=== PATIENT | female | born 1975 | race Caucasian/White ===

== ENCOUNTER 2017-03-20 14:46 | Emergency (ER) | payer SELFPAY ==
[2017-03-20] MEDS ORDERED: Metoclopramide HCl 10 MG/2 ML VIAL ONE (15:41)
== END 2017-03-20 16:55 | disposition home or self-care (01) ==
LOC: ERS 14:46
DX: R11.2 Nausea with vomiting, unspecified (principal); F17.210 Nicotine dependence, cigarettes, uncomplicated
CPT/HCPCS: 96365; 99406; J2765

== ENCOUNTER 2017-09-10 18:59 | Emergency (ER) | payer SELFPAY ==
[~2017-09-10 18:59] MED LIST: ISOVUE-370 76%-LOCM 1 ML ONE
[2017-09-10 19:24] LABS: Bilirubin Negative (Negative); Blood, Urine Large (Negative); Clarity CLEAR (Clear); Glucose, Urine (Dipstick) Negative (Negative); Leukocyte Negative (Negative); Nitrite Negative (Negative); Protein, Urine (Dipstick) Negative (Neg-Trace); Specific Gravity, Urine 1.024 (1.002-1.036); Urobilinogen 0.2 mg/dL (0.2-1.0)
[2017-09-10 19:25] LABS: #Basophils 0.1 thou/uL (0.0-0.2); #Eosinphils 0.2 thou/uL (0.0-0.7); #Lymphocytes 3.7 thou/uL (1.20-3.40); #Monocytes 0.6 thou/uL (0.11-0.59); #Neutrophils 7.5 thou/uL (1.40-6.50); %Basophils 0.5 % (0.0-1.0); %Eosinophils 1.7 % (0.0-10.0); %Lymphocytes 30.4 % (21.0-51.0); %Neutrophils 62.4 % (42.0-75.0); Hemoglobin 12.4 g/dL (12.0-16.0); Mean Corpuscular HGB CONC 34.5 g/dL (32.0-36.0); Mean Corpuscular Hemoglobin 32.3 pg (27.0-31.0); Mean Corpuscular Volume 93.7 fl (81.0-99.0); Mean Platelet Volume 6.9 fL (7.4-10.4); Platelet Count 282 thou/uL (130-400); RBC Distribution Width 12.7 % (11.5-14.5); Red Blood Cell (RBC) Count 3.85 mill/uL (4.20-5.40)
[2017-09-10 19:28] LABS: Bacteria/HPF None Seen HPF (None Seen); Hyaline Casts/LPF 0-3 HYALINE CAST LPF (0-3 Hyaline); Pathc Cast-AUWi Flag 0.14 (0-2.49); RBC/HPF GREATER THAN 50-TNTC HPF (0-3); Squamous Epithelial 0-3 HPF (0-3); WBC/HPF 0-3 HPF (0-3)
[2017-09-10] MEDS ORDERED: Prochlorperazine Maleate 5 MG TAB ONE (19:34)
[2017-09-10 19:45] LABS: ALT (SGPT) 10 U/L (8-55); AST (SGOT) 15 U/L (5-34); Albumin 4.1 g/dL (3.5-5.0); Alkaline Phosphatase 86 U/L (40-150); Anion Gap 13 mmol/L (10-20); BUN (Urea Nitrogen) 19 mg/dL (7.0-18.7); Bilirubin, Total 0.2 mg/dL (0.2-1.2); CK (CPK) 119 U/L (29-168); Calc. Creatinine Clearance 0 mL/min (70-130); Calcium 9.3 mg/dL (7.8-10.44); Carbon Dioxide 25 mmol/L (22-29); Chloride 107 mmol/L (98-107); Estimated GFR-MDRD Greater than 90; Globulin 2.7 g/dL (2.4-3.5); Glucose 95 mg/dL (70-105); Potassium 3.8 mmol/L (3.5-5.1); Protein, Total 6.8 g/dL (6.0-8.3); Sodium 141 mmol/L (136-145)
[2017-09-10 19:48] LABS: Troponin I Less than 0.010 ng/mL (< 0.028)
[2017-09-10] MEDS ORDERED: Lorazepam 2 MG/ML VIAL ONE (20:18)
[2017-09-10] MEDS ORDERED: Acetaminophen 500 MG TAB ONE (20:19)
--- NOTE | 2017-09-10 20:39 | RAD ---
PORTABLE CHEST: 09/10/17 HISTORY: Chest pain radiating to jaw and left arm. Heart size and mediastinum are within normal limits. The lungs are clear of infiltrates. No signs of failure. IMPRESSION: No active intrathoracic disease. POS: [facility]
[2017-09-10] MEDS ORDERED: diphenhydrAMINE 12.5 MG/5 ML UDCUP ONE (21:18)
[2017-09-10] MEDS ORDERED: Haloperidol Lactate 5 MG/ML VIAL ONE (21:18)
[2017-09-10] MEDS ORDERED: diphenhydrAMINE 50 MG/ML VIAL ONE (21:20)
--- NOTE | 2017-09-10 22:55 | CT ---
CT OF HEAD PERFORMED WITHOUT CONTRAST ENHANCEMENT AND CT ANGIO OF HEAD AND NECK PERFORMED WITH INTRAV ENOUS CONTRAST ENHANCEMENT WITH 3D RECONSTRUCTIONS: 09/10/17 HISTORY: Chest pain, pain radiating into the left arm and jaw region. Difficulty breathing. The ventricular and cisternal system is within normal limits. There is no signs of intracerebral hemo rrhage or extra-axial fluid collections. Mastoid air cells and visualized sinuses are clear. The lung apices are clear of any infiltrative process. There is a slightly prominent node in the tre on of the left aorticopulmonary window region. It measures 1.4 cm. I do not see any other abnormal no aaron in the visualized portion of the mediastinum. No signs for pulmonary embolus in the upper lobe pu lmonary vessels. Thyroid gland is unremarkable. Vocal cord regions normal. Some mildly prominent jugular chain nodes a re present, slightly more prominent on the left side but these are felt to just be reactive. The paro tid and submandibular gland regions are unremarkable. Parapharyngeal spaces are clear and tonsillar r egions appear unremarkable. Angiographic portion of this study shows separate origin of the left common carotid artery from the a ortic arch. The vertebral arteries show a more dominant right vertebral, slightly smaller left verteb ral with the main contribution of the basilar artery coming from the right vertebral. On the right side, the right common carotid as well as internal and external carotid arteries are nor mal in appearance. No evidence of any significant stenosis by NASCET criteria. The left side shows similar changes. No significant stenosis of the internal, external or common gallagher tid arteries. Intracranially, the anterior and middle cerebral arteries and their branches appear unremarkable. No signs of thrombus. Peripheral middle cerebral artery vessels are symmetric in appearance. IMPRESSION: Essentially unremarkable CT angio of head and neck with incidental findings as discussed above. POS: [facility]
== END 2017-09-10 23:02 | disposition home or self-care (01) ==
LOC: ERS 18:59
DX: R07.89 Other chest pain (principal); R51 Headache; F32.9 Major depressive disorder, single episode, unspecified; F17.210 Nicotine dependence, cigarettes, uncomplicated; Z79.899 Other long term (current) drug therapy
CPT/HCPCS: 70496; 70498; 71045; 80053; 81003; 81015; 82553; 84484; 85025; 85379; 93005; 96361; 96374; 96375; J1200; J1630; J2060; Q0164

== ENCOUNTER 2018-06-04 15:48 | Emergency (ER) | payer SELFPAY ==
[2018-06-04] MEDS ORDERED: Promethazine HCl 25 MG/ML VIAL ONE (16:56)
== END 2018-06-04 17:10 | disposition home or self-care (01) ==
LOC: ERS 15:48
DX: R11.2 Nausea with vomiting, unspecified (principal); F17.210 Nicotine dependence, cigarettes, uncomplicated
CPT/HCPCS: 96372; 99406; J2550

== ENCOUNTER 2019-01-31 16:06 | Emergency (ER) | payer SELFPAY ==
[2019-01-31 17:25] LABS: #Basophils 0.1 thou/uL (0.0-0.2); #Eosinphils 0.2 thou/uL (0.0-0.7); #Lymphocytes 3.1 thou/uL (1.20-3.40); #Monocytes 0.7 thou/uL (0.11-0.59); #Neutrophils 7.9 thou/uL (1.40-6.50); %Basophils 0.8 % (0.0-1.0); %Eosinophils 1.3 % (0.0-10.0); %Monocytes 5.7 % (0.0-10.0); %Neutrophils 66.2 % (42.0-75.0); Hemoglobin 12.6 g/dL (12.0-16.0); Mean Corpuscular HGB CONC 33.7 g/dL (32.0-36.0); Mean Corpuscular Hemoglobin 31.3 pg (27.0-31.0); Mean Corpuscular Volume 92.8 fL (78.0-98.0); Mean Platelet Volume 7.1 fL (7.4-10.4); Platelet Count 253 thou/uL (130-400); Red Blood Cell (RBC) Count 4.02 mill/uL (4.20-5.40); White Blood Cell (WBC) Count 11.9 thou/uL (4.8-10.8)
[2019-01-31 17:44] LABS: ALT (SGPT) 17 U/L (8-55); AST (SGOT) 12 U/L (5-34); Albumin 4.2 g/dL (3.5-5.0); Alkaline Phosphatase 83 U/L (40-110); Anion Gap 13 mmol/L (10-20); BUN (Urea Nitrogen) 14 mg/dL (7.0-18.7); Bilirubin, Total 0.2 mg/dL (0.2-1.2); Calc. Creatinine Clearance 0 mL/min (70-130); Calcium 9.3 mg/dL (7.8-10.44); Carbon Dioxide 21 mmol/L (22-29); Chloride 109 mmol/L (98-107); Estimated GFR-MDRD Greater than 90; Globulin 2.8 g/dL (2.4-3.5); Glucose 105 mg/dL (70-105); Potassium 3.7 mmol/L (3.5-5.1); Sodium 139 mmol/L (136-145)
[2019-01-31 17:46] LABS: Bilirubin Negative (Negative); Blood, Urine Trace (Negative); Clarity Turbid (Clear); Glucose, Urine (Dipstick) Normal (Negative); Leukocyte 25 Leu/uL (Negative); Nitrite Negative (Negative); Protein, Urine (Dipstick) Negative (Neg-Trace); Urobilinogen Normal mg/dL (Less than 2)
[2019-01-31 17:55] LABS: Bacteria/HPF Rare-Few HPF (None Seen); RBC/HPF 0-3 HPF (0-3); Squamous Epithelial 0-3 HPF (0-3); WBC/HPF 0-3 HPF (0-3)
--- NOTE | 2019-01-31 18:27 | RAD ---
PORTABLE CHEST: History: Syncope, chest pressure, jaw pain. Comparison: 09-10-17 FINDINGS: Heart size and mediastinum are within normal limits. The lungs are clear of infiltrates. No significa nt bony findings. IMPRESSION: No active intrathoracic disease. POS: [facility]
[2019-01-31] MEDS ORDERED: Lorazepam 1 MG TAB ONE (18:38)
--- NOTE | 2019-01-31 18:58 | CT ---
CT BRAIN PERFORMED WITHOUT CONTRAST ENHANCEMENT: History: Dizziness, syncope. FINDINGS: The ventricular and cisternal system is within normal limits. There are no signs of intracerebral hem orrhage or extraaxial fluid collections. The mastoid air cells and visualized sinuses appear clear. IMPRESSION: No acute intracranial abnormalities. POS: [facility]
== END 2019-01-31 19:24 | disposition home or self-care (01) ==
LOC: ERS 16:06
DX: R55 Syncope and collapse (principal); F41.9 Anxiety disorder, unspecified; D50.9 Iron deficiency anemia, unspecified; F32.9 Major depressive disorder, single episode, unspecified; F17.210 Nicotine dependence, cigarettes, uncomplicated; Z79.899 Other long term (current) drug therapy
CPT/HCPCS: 36415; 70450; 71045; 80053; 81003; 81015; 84443; 84484; 85025; 93005

== ENCOUNTER 2020-10-23 08:24 | Outpatient (CLI) | payer BC ==
[2020-10-23 09:40] LABS: #Basophils 0.1 10x3/uL (0.0-0.2); #Eosinphils 0.2 10x3/uL (0.0-0.5); #Monocytes 0.7 10x3/uL (0.0-1.1); #Neutrophils 5.5 10x3/uL (1.5-8.4); %Basophils 0.6 % (0.0-2.0); %Eosinophils 2.1 % (0.0-6.0); %Monocytes 7.8 % (0.0-10.0); Hemoglobin 12.6 g/dL (12.0-15.5); Mean Corpuscular HGB CONC 31.9 g/dL (32.0-36.0); Mean Corpuscular Hemoglobin 28.6 pg (27.0-33.0); Mean Corpuscular Volume 89.8 fl (81.6-98.3); Mean Platelet Volume 10.2 fl (7.4-10.4); Platelet Count 289 10x3/uL (150-450); RBC Distribution Width 15.4 % (11.5-14.5); White Blood Cell (WBC) Count 8.5 10x3/uL (3.5-10.5)
[2020-10-23 09:51] LABS: BHCG - Serum Negative (NEGATIVE); Pregs Control Background? CLEAR/WHITE (CLR/WHITE); Pregs Control Bar Appear? YES (CONTROL BAR)
== END 2020-10-23 08:25 | disposition home or self-care (01) ==
LOC: LABBT 08:24
PROVIDERS: ATTEND Orthopaedic Surgery
DX: Z01.812 Encounter for preprocedural laboratory examination (principal); G56.21 Lesion of ulnar nerve, right upper limb; G56.01 Carpal tunnel syndrome, right upper limb
CPT/HCPCS: 84703; 85025

== ENCOUNTER 2020-10-26 06:23 | Day surgery (SDC) | payer BC ==
[2020-10-25 09:33] VITALS: BMI 36.0
[2020-10-26] MEDS ORDERED: Midazolam HCl 2 mg/2 ml Vial ONE (08:22)
[2020-10-26] MEDS ORDERED: Fentanyl 100 MCG/2 ML VIAL ONE ×3 (09:55→11:25)
[2020-10-26] MEDS ORDERED: Lidocaine 1% w/Epinephrine 1:100K 20 ML VIAL ONE (09:55)
[2020-10-26] MEDS ORDERED: Dexmedetomidine 200 MCG/2 ML VIAL ONE (09:56)
[2020-10-26] MEDS ORDERED: ePHEDrine Sulfate 50 MG/10 ML VIAL ONE (10:07)
[2020-10-26] MEDS ORDERED: Dexamethasone 20 MG/5 ML VIAL ONE (10:07)
[2020-10-26] MEDS ORDERED: Ketorolac Tromethamine 30 MG/ML VIAL ONE (10:07)
[2020-10-26] MEDS ORDERED: Ondansetron PF 4 MG/2 ML Vial ONE ×2 (10:07→11:19)
[2020-10-26] MEDS ORDERED: PROPOFOL 200 MG/20 ML VIAL ONE (10:07)
[2020-10-26] MEDS ORDERED: Lidocaine 1% PF 5 ML VIAL ONE (10:07)
[2020-10-26] MEDS ORDERED: PROPOFOL 20 ML ONE (10:16)
== END 2020-10-26 12:55 | disposition home or self-care (01) ==
LOC: SDC 06:23
PROVIDERS: ATTEND Orthopaedic Surgery
PROC: 01N40ZZ Release Ulnar Nerve, Open Approach (ICD-10-PCS; principal; 2020-10-26)
PROC: 01N50ZZ Release Median Nerve, Open Approach (ICD-10-PCS; principal; 2020-10-26)
DX: G56.21 Lesion of ulnar nerve, right upper limb (principal); G56.01 Carpal tunnel syndrome, right upper limb; M50.123 Cervical disc disorder at C6-C7 level with radiculopathy; J45.909 Unspecified asthma, uncomplicated; E66.9 Obesity, unspecified; Z68.36 Body mass index [BMI] 36.0-36.9, adult; Z79.899 Other long term (current) drug therapy; Z91.013 Allergy to seafood
CPT/HCPCS: J0690; J1100; J1885; J2250; J2405; J2704; J3010

== ENCOUNTER 2021-05-29 09:47 | Emergency (ER) | payer BC ==
[2021-05-29] MEDS ORDERED: Lorazepam 2 MG/ML VIAL ONE (10:22)
[2021-05-29 10:42] LABS: #Basophils 0.1 thou/uL (0.0-0.2); #Eosinphils 0.2 thou/uL (0.0-0.7); #Lymphocytes 2.1 thou/uL (1.20-3.40); #Monocytes 0.5 thou/uL (0.11-0.59); #Neutrophils 7.2 thou/uL (1.40-6.50); %Basophils 0.6 % (0.0-1.0); %Eosinophils 1.7 % (0.0-10.0); %Lymphocytes 20.9 % (21.0-51.0); %Monocytes 5.3 % (0.0-10.0); %Neutrophils 71.5 % (42.0-75.0); Hemoglobin 12.3 g/dL (12.0-16.0); Mean Corpuscular HGB CONC 32.4 g/dL (32.0-36.0); Mean Corpuscular Volume 89.7 fL (78.0-98.0); Mean Platelet Volume 7.3 fL (7.4-10.4); Platelet Count 270 thou/uL (130-400); RBC Distribution Width 14.9 % (11.5-14.5); Red Blood Cell (RBC) Count 4.24 mill/uL (4.20-5.40); White Blood Cell (WBC) Count 10.1 thou/uL (4.8-10.8)
[2021-05-29] MEDS ORDERED: levETIRAcetam in NS 100 ML ONE (10:46)
[2021-05-29 11:00] LABS: ALT (SGPT) 11 U/L (8-55); AST (SGOT) 14 U/L (5-34); Albumin 3.8 g/dL (3.5-5.0); Alkaline Phosphatase 79 U/L (40-110); Anion Gap 13 mmol/L (10-20); BUN (Urea Nitrogen) 15 mg/dL (7.0-18.7); Bilirubin, Total 0.2 mg/dL (0.2-1.2); Calc. Creatinine Clearance 0 mL/min (70-130); Calcium 8.6 mg/dL (7.8-10.44); Carbon Dioxide 20 mmol/L (22-29); Chloride 108 mmol/L (98-107); Glucose 95 mg/dL (70-105); Potassium 4.1 mmol/L (3.5-5.1); Protein, Total 6.8 g/dL (6.0-8.3); Sodium 137 mmol/L (136-145)
[2021-05-29 11:43] LABS: Pregnancy Test - Urine (BHCG) Negative (Negative); Pregu Control Background? CLEAR/WHITE (CLR/WHITE); Pregu Control Bar Appear? YES (CONTROL BAR); Specific Gravity 1.017 (1.002-1.036)
[2021-05-29] MEDS ORDERED: diphenhydrAMINE 12.5 MG/5 ML UDCUP ONE (12:45)
[2021-05-29] MEDS ORDERED: Ketorolac Tromethamine 30 MG/ML VIAL ONE (12:45)
[2021-05-29] MEDS ORDERED: diphenhydrAMINE 50 MG/ML VIAL ONE (12:46)
[2021-05-29] MEDS ORDERED: Prochlorperazine 10 MG/2 ML VIAL IVP SCH (13:00)
== END 2021-05-29 14:21 | disposition home or self-care (01) ==
LOC: ERS 09:47
DX: R56.9 Unspecified convulsions (principal); F43.0 Acute stress reaction; F17.210 Nicotine dependence, cigarettes, uncomplicated; R29.700 NIHSS score 0; D50.9 Iron deficiency anemia, unspecified
CPT/HCPCS: 36415; 70450; 80053; 81025; 83605; 85025; 93005; 94760; 96365; 96375; J0780; J1200; J1885; J1953; J2060; Q0163

== ENCOUNTER 2021-06-06 08:35 | Outpatient (CLI) | payer BC | END 2021-06-06 08:36 | disposition home or self-care (01) | LOC: SCSMRI 08:35 | PROVIDERS: ATTEND Family Medicine | DX: R56.9 Unspecified convulsions (principal) | CPT/HCPCS: 70551 ==

== ENCOUNTER 2021-07-05 16:06 | Outpatient (CLI) | payer BC | END 2021-07-05 16:07 | disposition home or self-care (01) | LOC: ULT 16:06 | PROVIDERS: ATTEND Family Medicine | DX: M79.89 Other specified soft tissue disorders (principal) ==

== ENCOUNTER 2021-08-10 13:28 | Inpatient (IN) | payer BC ==
[2021-08-10] MEDS ORDERED: Sterile Water 10 ML ONE (14:03)
[2021-08-10] MEDS ORDERED: Ondansetron PF 4 MG/2 ML Vial ONE (14:03)
[2021-08-10] MEDS ORDERED: Morphine 4 MG/ML VIAL ONE ×2 (14:03→16:05)
[2021-08-10 14:19] LABS: #Basophils 0.1 thou/uL (0.0-0.2); #Eosinphils 0.1 thou/uL (0.0-0.7); #Monocytes 0.6 thou/uL (0.11-0.59); #Neutrophils 7.4 thou/uL (1.40-6.50); %Basophils 0.5 % (0.0-1.0); %Eosinophils 1.2 % (0.0-10.0); %Lymphocytes 26.6 % (21.0-51.0); %Monocytes 5.1 % (0.0-10.0); %Neutrophils 66.6 % (42.0-75.0); Hemoglobin 11.9 g/dL (12.0-16.0); Mean Corpuscular HGB CONC 32.7 g/dL (32.0-36.0); Mean Corpuscular Hemoglobin 29.1 pg (27.0-31.0); Mean Corpuscular Volume 88.9 fL (78.0-98.0); Mean Platelet Volume 7.3 fL (7.4-10.4); Platelet Count 298 thou/uL (130-400); RBC Distribution Width 15.6 % (11.5-14.5); Red Blood Cell (RBC) Count 4.09 mill/uL (4.20-5.40); White Blood Cell (WBC) Count 11.1 thou/uL (4.8-10.8)
[2021-08-10 14:43] LABS: ALT (SGPT) 10 U/L (8-55); AST (SGOT) 17 U/L (5-34); Albumin 4.2 g/dL (3.5-5.0); Alkaline Phosphatase 89 U/L (40-110); Anion Gap 15 mmol/L (10-20); BUN (Urea Nitrogen) 31 mg/dL (7.0-18.7); Bilirubin, Total 0.2 mg/dL (0.2-1.2); Calc. Creatinine Clearance 0 mL/min (70-130); Carbon Dioxide 18 mmol/L (22-29); Chloride 106 mmol/L (98-107); Globulin 3.4 g/dL (2.4-3.5); Glucose 105 mg/dL (70-105); Potassium 4.2 mmol/L (3.5-5.1); Protein, Total 7.6 g/dL (6.0-8.3); Sodium 135 mmol/L (136-145)
[2021-08-10 14:45] LABS: Bacteria/HPF None Seen HPF (None Seen); Bilirubin Negative (Negative); Blood, Urine Trace (Negative); Clarity Clear (Clear); Glucose, Urine (Dipstick) Normal (Negative); Ketone, Urine Negative (Negative); Leukocyte 25 Leu/uL (Negative); Nitrite Negative (Negative); Protein, Urine (Dipstick) Negative (Neg-Trace); RBC/HPF 0-3 HPF (0-3); Specific Gravity, Urine 1.028 (1.002-1.036); Urobilinogen Normal mg/dL (Less than 2); WBC/HPF 0-3 HPF (0-3); pH, Urine 5.5 (5.0-9.0)
[2021-08-10] MEDS ORDERED: metroNIDAZOLE 500 MG in Premix Bag 1 BAG IVPB SCH (15:00)
[2021-08-10] MEDS ORDERED: Ondansetron PF 4 MG/2 ML Vial IVP PRN (16:51)
[2021-08-10] MEDS ORDERED: Acetaminophen 650 MG Suppository PR PRN (16:51)
[2021-08-10] MEDS ORDERED: Ondansetron ODT 4 MG TAB PO PRN (16:51)
[2021-08-10] MEDS ORDERED: Melatonin 3 MG TAB PO PRN (16:56)
[2021-08-10] MEDS ORDERED: Vancomycin 1 GM in Premix Bag 1 BAG IVPB SCH (17:00)
[2021-08-10] MEDS ORDERED: Piperacillin/Tazobactam 3.375 GM in Sodium Chloride 0.9% 100 ML IVPB SCH (17:00)
[2021-08-10 17:56] LABS: HIV (1/2) Antibody/Antigen Non-Reactive (NonReactive)
[2021-08-10] MEDS ORDERED: Piperacillin/Tazobactam 4.5 GM in Sodium Chloride 0.9% 100 ML IVPB SCH (18:00)
[2021-08-10 18:04] VITALS: BMI 33.7
[2021-08-10] MEDS: ALPRAZolam 0.5 MG TAB PO PRN (19:22)
[2021-08-10] MEDS: HYDROcodone/Acetaminophen 5/325 mg Tablet PO PRN (19:39)
[2021-08-10] MEDS: Lorazepam 1 MG TAB PO PRN (21:14)
[2021-08-10] MEDS: Topiramate 25 MG TAB PO SCH (21:14)
[2021-08-10] MEDS: Vancomycin HCl 1.5 GM in Sodium Chloride 0.9% 250 ML 300 ML IVPB SCH (21:52)
[2021-08-10] MEDS ORDERED: Morphine 4 MG/ML VIAL SLOW IVP SCH (22:15)
[2021-08-10] MEDS: Piperacillin/Tazobactam 3.375 GM in Sodium Chloride 0.9% 100 ML IVPB SCH (23:57)
[2021-08-11] MEDS: Acetaminophen 325 MG TAB PO PRN ×2 (00:08→07:56)
[2021-08-11] MEDS: HYDROcodone/Acetaminophen 5/325 mg Tablet PO PRN ×2 (02:43→13:59)
[2021-08-11] MEDS ORDERED: Morphine 4 MG/ML VIAL SLOW IVP SCH ×2 (05:15→05:30)
[2021-08-11 05:30] LABS: #Basophils 0.1 thou/uL (0.0-0.2); #Eosinphils 0.2 thou/uL (0.0-0.7); #Lymphocytes 2.5 thou/uL (1.20-3.40); #Monocytes 0.6 thou/uL (0.11-0.59); %Basophils 0.7 % (0.0-1.0); %Eosinophils 2.2 % (0.0-10.0); %Lymphocytes 30.1 % (21.0-51.0); %Monocytes 7.2 % (0.0-10.0); %Neutrophils 59.8 % (42.0-75.0); Hemoglobin 10.7 g/dL (12.0-16.0); Mean Corpuscular HGB CONC 31.8 g/dL (32.0-36.0); Mean Corpuscular Hemoglobin 28.9 pg (27.0-31.0); Mean Corpuscular Volume 90.9 fL (78.0-98.0); Mean Platelet Volume 7.2 fL (7.4-10.4); Platelet Count 240 thou/uL (130-400); RBC Distribution Width 15.5 % (11.5-14.5); Red Blood Cell (RBC) Count 3.71 mill/uL (4.20-5.40); White Blood Cell (WBC) Count 8.4 thou/uL (4.8-10.8)
[2021-08-11] MEDS ORDERED: Ketorolac Tromethamine 30 MG/ML VIAL IVP SCH (05:30)
[2021-08-11 05:52] LABS: Anion Gap 11 mmol/L (10-20); BUN (Urea Nitrogen) 22 mg/dL (7.0-18.7); Calc. Creatinine Clearance 163 mL/min (70-130); Carbon Dioxide 18 mmol/L (22-29); Chloride 110 mmol/L (98-107); Glucose 103 mg/dL (70-105); Potassium 4.2 mmol/L (3.5-5.1); Sodium 135 mmol/L (136-145)
[2021-08-11] MEDS: Piperacillin/Tazobactam 3.375 GM in Sodium Chloride 0.9% 100 ML IVPB SCH ×3 (06:02→22:41)
[2021-08-11] MEDS: Lorazepam 1 MG TAB PO PRN ×3 (07:48→20:51)
[2021-08-11] MEDS: Vancomycin HCl 1.5 GM in Sodium Chloride 0.9% 250 ML 300 ML IVPB SCH ×2 (07:57→20:45)
[2021-08-11] MEDS: Topiramate 25 MG TAB PO SCH ×2 (10:09→17:21)
[2021-08-11 14:22] LABS: SARS-CoV-2 PCR by NAA Not Detected (NotDetected)
[2021-08-11] MEDS: Morphine 4 MG/ML VIAL SLOW IVP PRN (17:21)
[2021-08-12] MEDS: Morphine 4 MG/ML VIAL SLOW IVP PRN ×4 (02:33→20:39)
[2021-08-12] MEDS: ALPRAZolam 0.5 MG TAB PO PRN ×2 (05:48→20:39)
[2021-08-12] MEDS: HYDROcodone/Acetaminophen 5/325 mg Tablet PO PRN ×2 (05:48→16:02)
[2021-08-12] MEDS: Piperacillin/Tazobactam 3.375 GM in Sodium Chloride 0.9% 100 ML IVPB SCH (05:48)
[2021-08-12 06:15] LABS: #Basophils 0.1 thou/uL (0.0-0.2); #Eosinphils 0.2 thou/uL (0.0-0.7); #Lymphocytes 2.1 thou/uL (1.20-3.40); #Monocytes 0.5 thou/uL (0.11-0.59); #Neutrophils 9.5 thou/uL (1.40-6.50); %Basophils 0.7 % (0.0-1.0); %Eosinophils 1.8 % (0.0-10.0); %Lymphocytes 16.8 % (21.0-51.0); %Monocytes 4.2 % (0.0-10.0); %Neutrophils 76.4 % (42.0-75.0); Hemoglobin 10.7 g/dL (12.0-16.0); Mean Corpuscular HGB CONC 31.3 g/dL (32.0-36.0); Mean Corpuscular Hemoglobin 28.5 pg (27.0-31.0); Mean Corpuscular Volume 91.3 fL (78.0-98.0); Mean Platelet Volume 7.3 fL (7.4-10.4); Platelet Count 253 thou/uL (130-400); RBC Distribution Width 15.6 % (11.5-14.5); Red Blood Cell (RBC) Count 3.77 mill/uL (4.20-5.40); White Blood Cell (WBC) Count 12.5 thou/uL (4.8-10.8)
[2021-08-12 06:34] LABS: Anion Gap 10 mmol/L (10-20); BUN (Urea Nitrogen) 18 mg/dL (7.0-18.7); Calc. Creatinine Clearance 165 mL/min (70-130); Calcium 8.4 mg/dL (7.8-10.44); Carbon Dioxide 20 mmol/L (22-29); Chloride 112 mmol/L (98-107); Glucose 125 mg/dL (70-105); Sodium 138 mmol/L (136-145)
[2021-08-12] MEDS: Topiramate 25 MG TAB PO SCH ×2 (07:33→17:25)
[2021-08-12] MEDS ORDERED: Morphine 4 MG/ML VIAL SLOW IVP SCH (09:30)
[2021-08-12] MEDS: Vancomycin HCl 1.5 GM in Sodium Chloride 0.9% 250 ML 300 ML IVPB SCH (10:07)
[2021-08-12] MEDS: Lorazepam 1 MG TAB PO PRN ×3 (10:19→23:03)
[2021-08-12] MEDS: Acetaminophen 325 MG TAB PO PRN (10:22)
[2021-08-12 11:13] LABS: Vancomycin, Trough 22.4 ug/mL
[2021-08-12] MEDS: Nicotine 21 MG PATCH TD SCH ×2 (12:07→12:57)
[2021-08-12] MEDS: CEFAZOLIN 1 GM in Sodium Chloride 0.9% 100 ML IVPB SCH ×2 (15:13→20:28)
[2021-08-12] MEDS ORDERED: Nicotine 21 MG PATCH TD SCH (18:00)
[2021-08-13] MEDS: Morphine 4 MG/ML VIAL SLOW IVP PRN ×3 (02:23→11:33)
[2021-08-13] MEDS: HYDROcodone/Acetaminophen 5/325 mg Tablet PO PRN ×2 (03:01→09:35)
[2021-08-13] MEDS: Lorazepam 1 MG TAB PO PRN ×2 (05:29→11:40)
[2021-08-13] MEDS: CEFAZOLIN 1 GM in Sodium Chloride 0.9% 100 ML IVPB SCH (05:29)
[2021-08-13 05:55] LABS: #Eosinphils 0.3 thou/uL (0.0-0.7); #Lymphocytes 2.3 thou/uL (1.20-3.40); #Monocytes 0.5 thou/uL (0.11-0.59); #Neutrophils 5.2 thou/uL (1.40-6.50); %Basophils 0.4 % (0.0-1.0); %Eosinophils 3.9 % (0.0-10.0); %Monocytes 5.6 % (0.0-10.0); %Neutrophils 62.3 % (42.0-75.0); Hemoglobin 10.6 g/dL (12.0-16.0); Mean Corpuscular HGB CONC 31.1 g/dL (32.0-36.0); Mean Corpuscular Hemoglobin 28.2 pg (27.0-31.0); Mean Corpuscular Volume 90.8 fL (78.0-98.0); Mean Platelet Volume 7.1 fL (7.4-10.4); Platelet Count 268 thou/uL (130-400); RBC Distribution Width 15.6 % (11.5-14.5); Red Blood Cell (RBC) Count 3.77 mill/uL (4.20-5.40); White Blood Cell (WBC) Count 8.4 thou/uL (4.8-10.8)
[2021-08-13 06:17] LABS: Anion Gap 10 mmol/L (10-20); BUN (Urea Nitrogen) 14 mg/dL (7.0-18.7); Calc. Creatinine Clearance 168 mL/min (70-130); Calcium 8.7 mg/dL (7.8-10.44); Carbon Dioxide 21 mmol/L (22-29); Chloride 109 mmol/L (98-107); Glucose 125 mg/dL (70-105); Sodium 136 mmol/L (136-145)
[2021-08-13] MEDS: Topiramate 25 MG TAB PO SCH (08:28)
[2021-08-13] MEDS ORDERED: HYDROcodone/Acetaminophen 5/325 mg Tablet PO PRN (10:08)
[2021-08-13 11:46] VITALS: BP 115/79; TEMP 98.1
[2021-08-14 10:19] LABS: HIV-1 Quantitative, RNA PCR <20 copies/mL (.)
[2021-08-16 12:18] LABS: ANA Symphony (Qualitative) Negative (Negative); ANA Symphony (Quantitative) 0.4 Ratio (< 0.7 Negative); dsDNA IgG Antibody Less than 0.5 IU/mL (<10 Negative)
== END 2021-08-13 14:15 | disposition home or self-care (01) | DRG 638 ==
LOC: ERS 13:28 → MSONC 15:27
PROVIDERS: ADMIT Hospitalist; ATTEND Emergency Medicine
DX: E11.628 Type 2 diabetes mellitus with other skin complications (principal); L03.116 Cellulitis of left lower limb; Z20.822 Contact with and (suspected) exposure to COVID-19; E11.65 Type 2 diabetes mellitus with hyperglycemia; F41.9 Anxiety disorder, unspecified; G40.909 Epilepsy, unspecified, not intractable, without status epilepticus; Z79.84 Long term (current) use of oral hypoglycemic drugs; Z79.899 Other long term (current) drug therapy
CPT/HCPCS: 36415; 70450; 80048; 80053; 80202; 81003; 81015; 83605; 85025; 86038; 86225; 87040; 87070; 87077; 87186; 87205; 87389; 87536; 93005; 96365; 96366; 96368; 96375; 96376; J0690; J2270; J2405; J2543; J3370; J3490; J7050; U0003; U0005

== ENCOUNTER 2021-09-08 08:04 | Emergency (ER) | payer BC ==
[2021-09-08] MEDS ORDERED: Lorazepam 2 MG/ML VIAL ONE (08:29)
[2021-09-08 08:32] LABS: #Basophils 0.1 thou/uL (0.0-0.2); #Eosinphils 0.2 thou/uL (0.0-0.7); #Lymphocytes 2.8 thou/uL (1.20-3.40); #Monocytes 0.8 thou/uL (0.11-0.59); #Neutrophils 7.7 thou/uL (1.40-6.50); %Basophils 0.6 % (0.0-1.0); %Eosinophils 1.9 % (0.0-10.0); %Lymphocytes 24.1 % (21.0-51.0); %Monocytes 6.8 % (0.0-10.0); %Neutrophils 66.7 % (42.0-75.0); Hemoglobin 12.1 g/dL (12.0-16.0); Mean Corpuscular HGB CONC 32.3 g/dL (32.0-36.0); Mean Corpuscular Hemoglobin 28.4 pg (27.0-31.0); Mean Corpuscular Volume 88.2 fL (78.0-98.0); Mean Platelet Volume 6.9 fL (7.4-10.4); Platelet Count 270 thou/uL (130-400); RBC Distribution Width 15.3 % (11.5-14.5); Red Blood Cell (RBC) Count 4.27 mill/uL (4.20-5.40); White Blood Cell (WBC) Count 11.6 thou/uL (4.8-10.8)
[2021-09-08 08:54] LABS: ALT (SGPT) 10 U/L (8-55); AST (SGOT) 11 U/L (5-34); Albumin 4.2 g/dL (3.5-5.0); Alkaline Phosphatase 92 U/L (40-110); Anion Gap 13 mmol/L (10-20); BUN (Urea Nitrogen) 16 mg/dL (7.0-18.7); Bilirubin, Total 0.2 mg/dL (0.2-1.2); Calc. Creatinine Clearance 0 mL/min (70-130); Calcium 9.1 mg/dL (7.8-10.44); Carbon Dioxide 22 mmol/L (22-29); Chloride 107 mmol/L (98-107); Glucose 113 mg/dL (70-105); Potassium 4.2 mmol/L (3.5-5.1); Protein, Total 7.2 g/dL (6.0-8.3); Sodium 138 mmol/L (136-145)
[2021-09-08 09:39] LABS: Bacteria/HPF None Seen HPF (None Seen); Bilirubin Negative (Negative); Blood, Urine Trace (Negative); Clarity Clear (Clear); Glucose, Urine (Dipstick) Normal (Negative); Ketone, Urine Negative (Negative); Leukocyte Negative Leu/uL (Negative); Nitrite Negative (Negative); Protein, Urine (Dipstick) Negative (Neg-Trace); RBC/HPF 0-3 HPF (0-3); Specific Gravity, Urine 1.018 (1.002-1.036); Urobilinogen Normal mg/dL (Less than 2); WBC/HPF 0-3 HPF (0-3); pH, Urine 6.5 (5.0-9.0)
[2021-09-08] MEDS ORDERED: Dexamethasone 10 MG/ML VIAL ONE (10:12)
[2021-09-08] MEDS ORDERED: Metoclopramide HCl 10 MG/2 ML VIAL ONE (10:12)
== END 2021-09-08 11:27 | disposition home or self-care (01) ==
LOC: ERS 08:04
DX: G43.109 Migraine with aura, not intractable, without status migrainosus (principal); F17.210 Nicotine dependence, cigarettes, uncomplicated
CPT/HCPCS: 70450; 80053; 81003; 81015; 84146; 85025; 96374; 96375; J1100; J2060; J2765

== ENCOUNTER 2021-09-11 20:54 | Emergency (ER) | payer BC ==
[2021-09-11] MEDS ORDERED: Metoclopramide 10 MG/10 ML UDCUP ONE (21:40)
[2021-09-11] MEDS ORDERED: Metoclopramide HCl 10 MG/2 ML VIAL ONE (21:40)
[2021-09-11] MEDS ORDERED: Dexamethasone 10 MG/ML VIAL ONE (21:40)
[2021-09-11] MEDS ORDERED: Lorazepam 2 MG/ML VIAL ONE (21:40)
[2021-09-11 21:54] LABS: #Basophils 0.1 thou/uL (0.0-0.2); #Eosinphils 0.3 thou/uL (0.0-0.7); #Lymphocytes 3.2 thou/uL (1.20-3.40); #Monocytes 0.9 thou/uL (0.11-0.59); #Neutrophils 9.5 thou/uL (1.40-6.50); %Basophils 0.6 % (0.0-1.0); %Lymphocytes 22.9 % (21.0-51.0); %Monocytes 6.1 % (0.0-10.0); %Neutrophils 68.5 % (42.0-75.0); Hemoglobin 10.9 g/dL (12.0-16.0); Mean Corpuscular HGB CONC 32.3 g/dL (32.0-36.0); Mean Corpuscular Hemoglobin 28.5 pg (27.0-31.0); Mean Corpuscular Volume 88.2 fL (78.0-98.0); Mean Platelet Volume 7.2 fL (7.4-10.4); Platelet Count 265 thou/uL (130-400); RBC Distribution Width 15.6 % (11.5-14.5); Red Blood Cell (RBC) Count 3.82 mill/uL (4.20-5.40); White Blood Cell (WBC) Count 13.8 thou/uL (4.8-10.8)
[2021-09-11 22:15] LABS: ALT (SGPT) 15 U/L (8-55); AST (SGOT) 15 U/L (5-34); Albumin 3.9 g/dL (3.5-5.0); Alkaline Phosphatase 93 U/L (40-110); Anion Gap 12 mmol/L (10-20); BUN (Urea Nitrogen) 21 mg/dL (7.0-18.7); Bilirubin, Total 0.2 mg/dL (0.2-1.2); Calc. Creatinine Clearance 0 mL/min (70-130); Carbon Dioxide 26 mmol/L (22-29); Chloride 104 mmol/L (98-107); Globulin 2.7 g/dL (2.4-3.5); Glucose 117 mg/dL (70-105); Potassium 4.2 mmol/L (3.5-5.1); Protein, Total 6.6 g/dL (6.0-8.3); Sodium 138 mmol/L (136-145)
[2021-09-11] MEDS ORDERED: Acetaminophen 500 MG TAB ONE (22:33)
[2021-09-11] MEDS ORDERED: Magnesium 2 GM/50 ML BAG (IN WATER) ONE (22:33)
[2021-09-11 23:08] LABS: Bilirubin Negative (Negative); Blood, Urine Negative (Negative); Clarity Turbid (Clear); Glucose, Urine (Dipstick) Normal (Negative); Ketone, Urine Negative (Negative); Leukocyte Negative Leu/uL (Negative); Nitrite Negative (Negative); Protein, Urine (Dipstick) Negative (Neg-Trace); Specific Gravity, Urine 1.019 (1.002-1.036); Urobilinogen Normal mg/dL (Less than 2); pH, Urine 7.5 (5.0-9.0)
[2021-09-11 23:17] LABS: Amphetamine Not Detected (NotDetected); Barbiturates Screen Not Detected (NotDetected); Benzodiazepine Screen Detected (NotDetected); Cocaine Metabolite Screen Not Detected (NotDetected); Methadone Not Detected (NotDetected); Methamphetamine Not Detected (NotDetected); Opiate Screen Not Detected (NotDetected); Oxycodone Screen Not Detected (NotDetected); Phencyclidine (PCP) Not Detected (NotDetected); THC/Cannabinoid Screen Detected (NotDetected); Tricyclic Screen Not Detected (NotDetected)
== END 2021-09-11 23:05 | disposition home or self-care (01) ==
LOC: ERS 20:54
DX: R56.9 Unspecified convulsions (principal); R51.9 Headache, unspecified; R29.700 NIHSS score 0; D50.9 Iron deficiency anemia, unspecified; F17.210 Nicotine dependence, cigarettes, uncomplicated; Z79.899 Other long term (current) drug therapy
CPT/HCPCS: 36415; 71045; 80053; 80306; 81003; 85025; 96365; 96375; J1100; J2060; J2765; J3475

== ENCOUNTER 2021-11-27 12:47 | Observation (INO) | payer BC ==
[2021-11-27] MEDS ORDERED: Morphine 4 MG/ML VIAL ONE (14:12)
[2021-11-27] MEDS ORDERED: Ondansetron PF 4 MG/2 ML Vial ONE (14:12)
[2021-11-27] MEDS ORDERED: Vancomycin 1 GM/200 ML BAG ONE (14:12)
[2021-11-27 14:33] LABS: #Basophils 0.1 thou/uL (0.0-0.2); #Eosinphils 0.1 thou/uL (0.0-0.7); #Lymphocytes 2.4 thou/uL (1.20-3.40); #Monocytes 0.7 thou/uL (0.11-0.59); #Neutrophils 5.7 thou/uL (1.40-6.50); %Basophils 0.7 % (0.0-1.0); %Eosinophils 1.4 % (0.0-10.0); %Lymphocytes 26.7 % (21.0-51.0); %Monocytes 7.8 % (0.0-10.0); %Neutrophils 63.3 % (42.0-75.0); Hemoglobin 11.2 g/dL (12.0-16.0); Mean Corpuscular HGB CONC 31.8 g/dL (32.0-36.0); Mean Corpuscular Hemoglobin 27.4 pg (27.0-31.0); Mean Corpuscular Volume 86.2 fL (78.0-98.0); Mean Platelet Volume 7.5 fL (7.4-10.4); Platelet Count 292 thou/uL (130-400); RBC Distribution Width 15.8 % (11.5-14.5); White Blood Cell (WBC) Count 8.9 thou/uL (4.8-10.8)
[2021-11-27 14:47] LABS: ALT (SGPT) 13 U/L (8-55); AST (SGOT) 16 U/L (5-34); Albumin 4.4 g/dL (3.5-5.0); Alkaline Phosphatase 101 U/L (40-110); Anion Gap 14 mmol/L (10-20); BUN (Urea Nitrogen) 22 mg/dL (7.0-18.7); Bilirubin, Total 0.4 mg/dL (0.2-1.2); Calc. Creatinine Clearance 0 mL/min (70-130); Calcium 9.3 mg/dL (7.8-10.44); Carbon Dioxide 24 mmol/L (22-29); Chloride 106 mmol/L (98-107); Estimated GFR 112; Globulin 3.1 g/dL (2.4-3.5); Glucose 94 mg/dL (70-105); Potassium 3.3 mmol/L (3.5-5.1); Protein, Total 7.5 g/dL (6.0-8.3); Sodium 141 mmol/L (136-145)
[2021-11-27 14:51] LABS: Bacteria/HPF None Seen HPF (None Seen); Bilirubin Negative (Negative); Blood, Urine 1+ (Negative); Clarity Clear (Clear); Glucose, Urine (Dipstick) Normal (Negative); Ketone, Urine Negative (Negative); Leukocyte Negative Leu/uL (Negative); Nitrite Negative (Negative); Protein, Urine (Dipstick) 10 mg/dL (Neg-Trace); RBC/HPF 0-3 HPF (0-3); Specific Gravity, Urine 1.032 (1.002-1.036); Squamous Epithelial 0-3 HPF (0-3); Urobilinogen Normal mg/dL (Less than 2); WBC/HPF 0-3 HPF (0-3); pH, Urine 5.5 (5.0-9.0)
[2021-11-27 15:00] LABS: BHCG - Serum Negative (NEGATIVE); Pregs Control Background? CLEAR/WHITE (CLR/WHITE); Pregs Control Bar Appear? YES (CONTROL BAR)
[2021-11-27] MEDS ORDERED: ALPRAZolam 0.5 MG TAB ONE (16:06)
[2021-11-27] MEDS ORDERED: Ondansetron PF 4 MG/2 ML Vial IVP PRN (21:00)
[2021-11-27] MEDS ORDERED: Acetaminophen 325 MG TAB PO PRN (21:00)
[2021-11-27] MEDS ORDERED: Ondansetron ODT 4 MG TAB SL PRN (21:00)
[2021-11-27 22:03] VITALS: BMI 35.2
[2021-11-27] MEDS ORDERED: Morphine 4 MG/ML VIAL SLOW IVP PRN (23:37)
[2021-11-28] MEDS ORDERED: Fentanyl 100 MCG/2 ML VIAL SLOW IVP SCH (01:00)
[2021-11-28] MEDS: VANCOMYCIN 1.25 GM/250 ML BAG 1.25 GM in Premix Bag 1 BAG IVPB SCH ×2 (02:55→10:03)
[2021-11-28 06:16] LABS: #Eosinphils 0.2 thou/uL (0.0-0.7); #Lymphocytes 2.1 thou/uL (1.20-3.40); #Monocytes 0.6 thou/uL (0.11-0.59); #Neutrophils 4.6 thou/uL (1.40-6.50); %Basophils 0.6 % (0.0-1.0); %Eosinophils 2.2 % (0.0-10.0); %Lymphocytes 27.9 % (21.0-51.0); %Monocytes 7.5 % (0.0-10.0); %Neutrophils 61.8 % (42.0-75.0); Hemoglobin 11.2 g/dL (12.0-16.0); Mean Corpuscular HGB CONC 31.3 g/dL (32.0-36.0); Mean Corpuscular Hemoglobin 27.6 pg (27.0-31.0); Mean Platelet Volume 7.3 fL (7.4-10.4); Platelet Count 248 thou/uL (130-400); RBC Distribution Width 15.8 % (11.5-14.5); Red Blood Cell (RBC) Count 4.06 mill/uL (4.20-5.40); White Blood Cell (WBC) Count 7.5 thou/uL (4.8-10.8)
[2021-11-28 06:36] LABS: Anion Gap 12 mmol/L (10-20); BUN (Urea Nitrogen) 17 mg/dL (7.0-18.7); Calc. Creatinine Clearance 195 mL/min (70-130); Calcium 8.6 mg/dL (7.8-10.44); Carbon Dioxide 22 mmol/L (22-29); Chloride 109 mmol/L (98-107); Estimated GFR 115; Glucose 105 mg/dL (70-105); Potassium 3.9 mmol/L (3.5-5.1); Sodium 139 mmol/L (136-145)
[2021-11-28] MEDS: Enoxaparin Sodium 40 MG/0.4 ML SYRINGE SC SCH (08:18)
[2021-11-28] MEDS: HYDROcodone/Acetaminophen 5/325 mg Tablet PO PRN ×3 (08:20→20:28)
[2021-11-28] MEDS ORDERED: Cefepime 1 GM in Sodium Chloride 0.9% 100 ML IVPB SCH (09:00)
[2021-11-28] MEDS ORDERED: Gabapentin 300 MG CAP PO SCH (09:00)
[2021-11-28] MEDS ORDERED: Melatonin 3 MG TAB PO PRN (10:17)
[2021-11-28] MEDS ORDERED: Morphine 2 MG/ML VIAL SLOW IVP SCH (10:30)
[2021-11-28] MEDS ORDERED: Albuterol Sulfate 2.5 mg/3 ml Neb NEB PRN (10:49)
[2021-11-28] MEDS: ALPRAZolam 0.5 MG TAB PO SCH ×2 (12:55→22:00)
[2021-11-28] MEDS: Cephalexin 250 MG CAP PO SCH ×2 (14:30→22:00)
[2021-11-28] MEDS: Morphine 2 MG/ML VIAL SLOW IVP PRN ×2 (18:31→23:40)
[2021-11-28] MEDS: Gabapentin 300 MG CAP PO SCH (22:00)
[2021-11-29] MEDS: HYDROcodone/Acetaminophen 5/325 mg Tablet PO PRN ×3 (02:31→20:00)
[2021-11-29] MEDS: Morphine 2 MG/ML VIAL SLOW IVP PRN ×4 (05:30→18:28)
[2021-11-29 06:25] LABS: #Basophils 0.1 thou/uL (0.0-0.2); #Eosinphils 0.2 thou/uL (0.0-0.7); #Lymphocytes 2.7 thou/uL (1.20-3.40); #Monocytes 0.6 thou/uL (0.11-0.59); #Neutrophils 3.5 thou/uL (1.40-6.50); %Basophils 0.8 % (0.0-1.0); %Eosinophils 2.6 % (0.0-10.0); %Lymphocytes 38.2 % (21.0-51.0); %Monocytes 8.1 % (0.0-10.0); %Neutrophils 50.4 % (42.0-75.0); Mean Corpuscular HGB CONC 31.8 g/dL (32.0-36.0); Mean Corpuscular Hemoglobin 27.8 pg (27.0-31.0); Mean Corpuscular Volume 87.4 fL (78.0-98.0); Mean Platelet Volume 7.6 fL (7.4-10.4); Platelet Count 280 thou/uL (130-400); Red Blood Cell (RBC) Count 3.97 mill/uL (4.20-5.40); White Blood Cell (WBC) Count 6.9 thou/uL (4.8-10.8)
[2021-11-29 06:53] LABS: Sodium 142 mmol/L (136-145)
[2021-11-29 06:54] LABS: Anion Gap 14 mmol/L (10-20); BUN (Urea Nitrogen) 15 mg/dL (7.0-18.7); Calc. Creatinine Clearance 159 mL/min (70-130); Calcium 8.9 mg/dL (7.8-10.44); Carbon Dioxide 24 mmol/L (22-29); Chloride 109 mmol/L (98-107); Estimated GFR 109; Glucose 124 mg/dL (70-105); Potassium 4.6 mmol/L (3.5-5.1)
[2021-11-29] MEDS: Enoxaparin Sodium 40 MG/0.4 ML SYRINGE SC SCH (08:00)
[2021-11-29] MEDS: ALPRAZolam 0.5 MG TAB PO SCH ×3 (08:00→20:03)
[2021-11-29] MEDS: Cephalexin 250 MG CAP PO SCH ×3 (08:00→20:02)
[2021-11-29] MEDS: Gabapentin 300 MG CAP PO SCH ×2 (08:01→20:02)
[2021-11-30] MEDS: Morphine 2 MG/ML VIAL SLOW IVP PRN ×2 (03:40→10:33)
[2021-11-30 05:35] LABS: #Basophils 0.1 thou/uL (0.0-0.2); #Eosinphils 0.1 thou/uL (0.0-0.7); #Monocytes 0.5 thou/uL (0.11-0.59); #Neutrophils 4.1 thou/uL (1.40-6.50); %Basophils 0.8 % (0.0-1.0); %Lymphocytes 29.9 % (21.0-51.0); %Monocytes 6.7 % (0.0-10.0); %Neutrophils 60.5 % (42.0-75.0); Hemoglobin 10.5 g/dL (12.0-16.0); Mean Corpuscular HGB CONC 31.6 g/dL (32.0-36.0); Mean Corpuscular Hemoglobin 28.3 pg (27.0-31.0); Mean Corpuscular Volume 89.4 fL (78.0-98.0); Mean Platelet Volume 7.7 fL (7.4-10.4); Platelet Count 264 thou/uL (130-400); RBC Distribution Width 16.4 % (11.5-14.5); Red Blood Cell (RBC) Count 3.71 mill/uL (4.20-5.40); White Blood Cell (WBC) Count 6.7 thou/uL (4.8-10.8)
[2021-11-30 05:56] LABS: Anion Gap 15 mmol/L (10-20); BUN (Urea Nitrogen) 16 mg/dL (7.0-18.7); Calc. Creatinine Clearance 169 mL/min (70-130); Calcium 9.5 mg/dL (7.8-10.44); Carbon Dioxide 24 mmol/L (22-29); Chloride 107 mmol/L (98-107); Estimated GFR 111; Glucose 136 mg/dL (70-105); Potassium 3.9 mmol/L (3.5-5.1); Sodium 142 mmol/L (136-145)
[2021-11-30] MEDS: ALPRAZolam 0.5 MG TAB PO SCH ×2 (06:35→14:51)
[2021-11-30] MEDS: Gabapentin 300 MG CAP PO SCH (06:36)
[2021-11-30] MEDS: HYDROcodone/Acetaminophen 5/325 mg Tablet PO PRN ×2 (07:21→15:37)
[2021-11-30] MEDS: Cephalexin 250 MG CAP PO SCH ×2 (09:38→14:51)
[2021-11-30] MEDS: Enoxaparin Sodium 40 MG/0.4 ML SYRINGE SC SCH (09:38)
[2021-11-30 16:19] VITALS: BP 145/70; TEMP 97.9
== END 2021-11-30 15:41 | disposition home or self-care (01) ==
LOC: ERS 12:47 → T4-B 15:48
PROVIDERS: ADMIT Internal Medicine; ATTEND Internal Medicine
DX: L03.114 Cellulitis of left upper limb (principal); L03.116 Cellulitis of left lower limb; G40.909 Epilepsy, unspecified, not intractable, without status epilepticus; F17.210 Nicotine dependence, cigarettes, uncomplicated; S50.812A Abrasion of left forearm, initial encounter; S80.812A Abrasion, left lower leg, initial encounter; Z86.14 Personal history of Methicillin resistant Staphylococcus aureus infection; Z79.899 Other long term (current) drug therapy; Z88.5 Allergy status to narcotic agent; Z88.8 Allergy status to other drugs, medicaments and biological substances; Z20.822 Contact with and (suspected) exposure to COVID-19; W19.XXXA Unspecified fall, initial encounter
CPT/HCPCS: 36415; 80048; 80053; 81003; 81015; 83605; 84703; 85025; 87040; 96365; 96366; 96372; 96375; 96376; G0378; J1650; J2270; J2405; J3010; J3370; U0003; U0005

== ENCOUNTER 2021-12-20 09:49 | Emergency (ER) | payer BC ==
[2021-12-20 10:22] LABS: #Eosinphils 0.2 thou/uL (0.0-0.7); #Lymphocytes 2.5 thou/uL (1.20-3.40); #Monocytes 0.6 thou/uL (0.11-0.59); #Neutrophils 7.2 thou/uL (1.40-6.50); %Basophils 0.4 % (0.0-1.0); %Eosinophils 2.1 % (0.0-10.0); %Lymphocytes 23.4 % (21.0-51.0); %Monocytes 5.8 % (0.0-10.0); %Neutrophils 68.3 % (42.0-75.0); Hemoglobin 11.5 g/dL (12.0-16.0); Mean Corpuscular HGB CONC 32.3 g/dL (32.0-36.0); Mean Corpuscular Hemoglobin 27.7 pg (27.0-31.0); Mean Corpuscular Volume 85.7 fL (78.0-98.0); Mean Platelet Volume 7.7 fL (7.4-10.4); Platelet Count 261 thou/uL (130-400); RBC Distribution Width 15.8 % (11.5-14.5); Red Blood Cell (RBC) Count 4.17 mill/uL (4.20-5.40); White Blood Cell (WBC) Count 10.5 thou/uL (4.8-10.8)
[2021-12-20] MEDS ORDERED: methylPREDNISolone Sod Succ/PF 125 MG/2 ML VIAL ONE (10:28)
[2021-12-20] MEDS ORDERED: Metoclopramide HCl 10 MG/2 ML VIAL ONE (10:28)
[2021-12-20] MEDS ORDERED: Ketorolac Tromethamine 30 MG/ML VIAL ONE (10:28)
[2021-12-20 10:56] LABS: ALT (SGPT) 8 U/L (8-55); AST (SGOT) 11 U/L (5-34); Alkaline Phosphatase 102 U/L (40-110); Anion Gap 13 mmol/L (10-20); BUN (Urea Nitrogen) 20 mg/dL (7.0-18.7); Bilirubin, Total Less than 0.2 mg/dL (0.2-1.2); Calc. Creatinine Clearance 0 mL/min (70-130); Calcium 9.3 mg/dL (7.8-10.44); Carbon Dioxide 23 mmol/L (22-29); Chloride 109 mmol/L (98-107); Estimated GFR 112; Globulin 2.8 g/dL (2.4-3.5); Glucose 108 mg/dL (70-105); Protein, Total 6.8 g/dL (6.0-8.3); Sodium 141 mmol/L (136-145)
== END 2021-12-20 11:50 | disposition home or self-care (01) ==
LOC: ERS 09:49
DX: R56.9 Unspecified convulsions (principal); D50.9 Iron deficiency anemia, unspecified; F17.210 Nicotine dependence, cigarettes, uncomplicated
CPT/HCPCS: 80053; 84146; 85025; 93005; 94760; 96374; 96375; J1885; J2765; J2930

== ENCOUNTER 2022-03-22 00:59 | Emergency (ER) | payer BC ==
[2022-03-22] MEDS ORDERED: levETIRAcetam 500 MG/5 ML VIAL ONE (01:26)
[2022-03-22 01:50] LABS: #Basophils 0.1 thou/uL (0.0-0.2); #Eosinphils 0.1 thou/uL (0.0-0.7); #Lymphocytes 2.4 thou/uL (1.20-3.40); #Monocytes 0.7 thou/uL (0.11-0.59); %Basophils 0.6 % (0.0-1.0); %Eosinophils 1.1 % (0.0-10.0); %Lymphocytes 23.1 % (21.0-51.0); %Neutrophils 68.2 % (42.0-75.0); Hemoglobin 10.9 g/dL (12.0-16.0); Mean Corpuscular HGB CONC 31.8 g/dL (32.0-36.0); Mean Corpuscular Hemoglobin 27.4 pg (27.0-31.0); Mean Corpuscular Volume 86.1 fl (78.0-98.0); Mean Platelet Volume 7.8 fL (7.4-10.4); Platelet Count 306 10x3/uL (130-400); Red Blood Cell (RBC) Count 3.99 mill/uL (4.20-5.40); White Blood Cell (WBC) Count 10.2 10x3/uL (4.8-10.8)
[2022-03-22 02:01] LABS: BHCG - Serum Negative (NEGATIVE); Pregs Control Background? CLEAR/WHITE (CLR/WHITE); Pregs Control Bar Appear? YES (CONTROL BAR)
[2022-03-22 02:12] LABS: ALT (SGPT) 9 U/L (8-55); AST (SGOT) 13 U/L (5-34); Acetaminophen Less than 10.0 mcg/mL (10.0-30.0); Albumin 4.1 g/dL (3.5-5.0); Alcohol Less than 10 mg/dL (Less than 10); Alkaline Phosphatase 88 U/L (40-110); Anion Gap 15 mmol/L (10-20); BUN (Urea Nitrogen) 25 mg/dL (7.0-18.7); Bilirubin, Total 0.3 mg/dL (0.2-1.2); Calc. Creatinine Clearance 0 mL/min (70-130); Calcium 9.2 mg/dL (7.8-10.44); Carbon Dioxide 22 mmol/L (22-29); Chloride 105 mmol/L (98-107); Estimated GFR 111; Glucose 97 mg/dL (70-105); Potassium 3.7 mmol/L (3.5-5.1); Protein, Total 7.1 g/dL (6.0-8.3); Sodium 138 mmol/L (136-145)
== END 2022-03-22 04:03 | disposition home or self-care (01) ==
LOC: ERS 00:59
DX: R56.9 Unspecified convulsions (principal); S00.81XA Abrasion of other part of head, initial encounter; F17.210 Nicotine dependence, cigarettes, uncomplicated
CPT/HCPCS: 36415; 70450; 72125; 80053; 80307; 84484; 84703; 85025; 93005; 96374; J1953

== ENCOUNTER 2022-06-16 14:35 | Emergency (ER) | payer BC ==
[2022-06-16 15:27] LABS: #Basophils 0.1 thou/uL (0.0-0.2); #Eosinphils 0.2 thou/uL (0.0-0.7); #Monocytes 0.7 thou/uL (0.11-0.59); #Neutrophils 6.5 thou/uL (1.40-6.50); %Basophils 0.7 % (0.0-1.0); %Eosinophils 1.6 % (0.0-10.0); %Lymphocytes 21.8 % (21.0-51.0); %Monocytes 7.2 % (0.0-10.0); %Neutrophils 68.7 % (42.0-75.0); Hemoglobin 11.1 g/dL (12.0-16.0); Mean Corpuscular HGB CONC 32.9 g/dL (32.0-36.0); Mean Corpuscular Hemoglobin 28.2 pg (27.0-31.0); Mean Corpuscular Volume 85.7 fl (78.0-98.0); Mean Platelet Volume 7.3 fL (7.4-10.4); Platelet Count 293 10x3/uL (130-400); RBC Distribution Width 16.5 % (11.5-14.5); Red Blood Cell (RBC) Count 3.92 mill/uL (4.20-5.40); White Blood Cell (WBC) Count 9.4 10x3/uL (4.8-10.8)
[2022-06-16] MEDS ORDERED: LORazepam 2 MG/ML SYR.(CARPUJECT) ONE (15:30)
[2022-06-16] MEDS ORDERED: levETIRAcetam 500 MG/5 ML VIAL ONE (15:35)
[2022-06-16 15:41] LABS: ALT (SGPT) 14 U/L (8-55); AST (SGOT) 15 U/L (5-34); Albumin 4.4 g/dL (3.5-5.0); Alkaline Phosphatase 90 U/L (40-110); Anion Gap 15 mmol/L (10-20); BUN (Urea Nitrogen) 20 mg/dL (7.0-18.7); Bilirubin, Total 0.4 mg/dL (0.2-1.2); Calc. Creatinine Clearance 0 mL/min (70-130); Calcium 9.9 mg/dL (7.8-10.44); Carbon Dioxide 23 mmol/L (22-29); Chloride 107 mmol/L (98-107); Estimated GFR 112; Globulin 2.7 g/dL (2.4-3.5); Glucose 91 mg/dL (70-105); Lipase 13 U/L (8-78); Magnesium 1.9 mg/dL (1.6-2.6); Potassium 3.8 mmol/L (3.5-5.1); Protein, Total 7.1 g/dL (6.0-8.3); Sodium 141 mmol/L (136-145)
== END 2022-06-16 17:42 | disposition home or self-care (01) ==
LOC: ERS 14:35
DX: R56.9 Unspecified convulsions (principal); F17.210 Nicotine dependence, cigarettes, uncomplicated
CPT/HCPCS: 70450; 80053; 83690; 83735; 84146; 85025; 93005; 96374; 96375; J1953; J2060

== ENCOUNTER 2022-09-08 15:43 | Inpatient (IN) | payer BC ==
[2022-09-08] MEDS ORDERED: Acetaminophen 500 MG TAB ONE (17:10)
[2022-09-08] MEDS ORDERED: Piperacillin/Tazobactam 4.5 GM VIAL ONE (17:10)
[2022-09-08 17:15] LABS: #Eosinphils 0.2 thou/uL (0.0-0.7); #Lymphocytes 2.7 thou/uL (1.20-3.40); #Monocytes 0.6 thou/uL (0.11-0.59); #Neutrophils 6.8 thou/uL (1.40-6.50); %Basophils 0.5 % (0.0-1.0); %Eosinophils 2.3 % (0.0-10.0); %Lymphocytes 25.8 % (21.0-51.0); %Monocytes 5.7 % (0.0-10.0); %Neutrophils 65.7 % (42.0-75.0); Hemoglobin 11.9 g/dL (12.0-16.0); Mean Corpuscular HGB CONC 33.3 g/dL (32.0-36.0); Mean Corpuscular Hemoglobin 29.5 pg (27.0-31.0); Mean Corpuscular Volume 88.8 fl (78.0-98.0); Mean Platelet Volume 8.1 fL (7.4-10.4); Platelet Count 183 10x3/uL (130-400); RBC Distribution Width 16.1 % (11.5-14.5); Red Blood Cell (RBC) Count 4.02 mill/uL (4.20-5.40); White Blood Cell (WBC) Count 10.3 10x3/uL (4.8-10.8)
[2022-09-08 17:27] LABS: Bilirubin Negative (Negative); Blood, Urine 1+ (Negative); Clarity Clear (Clear); Glucose, Urine (Dipstick) Normal (Negative); Ketone, Urine Negative (Negative); Leukocyte Negative Leu/uL (Negative); Nitrite Negative (Negative); Protein, Urine (Dipstick) Negative (Neg-Trace); Specific Gravity, Urine 1.025 (1.002-1.036); Squamous Epithelial 0-3 HPF (0-3); Urobilinogen Normal mg/dL (Less than 2); WBC/HPF 0-3 HPF (0-3); pH, Urine 5.5 (5.0-9.0)
[2022-09-08 17:28] LABS: Bacteria/HPF 1+ HPF (None Seen)
[2022-09-08] MEDS ORDERED: VANCOMYCIN 1.75 GM/500 ML BAG 1.75 GM in Premix Bag 1 BAG IVPB SCH (17:30)
[2022-09-08 17:37] LABS: ALT (SGPT) 14 U/L (8-55); AST (SGOT) 14 U/L (5-34); Albumin 4.1 g/dL (3.5-5.0); Alkaline Phosphatase 85 U/L (40-110); Anion Gap 15 mmol/L (10-20); BUN (Urea Nitrogen) 22 mg/dL (7.0-18.7); Bilirubin, Total Less than 0.2 mg/dL (0.2-1.2); Calc. Creatinine Clearance 0 mL/min (70-130); Calcium 9.3 mg/dL (7.8-10.44); Carbon Dioxide 21 mmol/L (22-29); Chloride 108 mmol/L (98-107); Estimated GFR 111; Globulin 2.8 g/dL (2.4-3.5); Glucose 103 mg/dL (70-105); Potassium 3.5 mmol/L (3.5-5.1); Protein, Total 6.9 g/dL (6.0-8.3); Sodium 140 mmol/L (136-145)
[2022-09-08] MEDS ORDERED: Morphine 2 MG/ML VIAL ONE (18:51)
[2022-09-08] MEDS ORDERED: Vancomycin 1 GM in Premix Bag 1 BAG IVPB SCH (21:00)
[2022-09-08] MEDS: HYDROcodone/Acetaminophen 5/325 mg Tablet PO PRN (21:02)
[2022-09-08] MEDS: Famotidine 20 MG TAB PO SCH (21:02)
[2022-09-08] MEDS: Sodium Chloride 0.9% 1,000 ML IV SCH (21:04)
[2022-09-08] MEDS: Cefepime 1 GM in Sodium Chloride 0.9% 100 ML IVPB SCH (21:05)
[2022-09-08 21:33] VITALS: BMI 31.6
[2022-09-08] MEDS ORDERED: Albuterol 200 PUFF (6.7GM INHALER) INH PRN (22:12)
[2022-09-08] MEDS: Morphine 2 MG/ML VIAL SLOW IVP PRN (23:36)
[2022-09-09] MEDS: VANCOMYCIN 1.25 GM/250 ML BAG 1.25 GM in Premix Bag 1 BAG IVPB SCH ×2 (05:10→16:57)
[2022-09-09] MEDS: HYDROcodone/Acetaminophen 5/325 mg Tablet PO PRN ×2 (05:12→09:10)
[2022-09-09] MEDS: Sodium Chloride 0.9% 1,000 ML IV SCH ×3 (05:22→16:56)
[2022-09-09] MEDS: Acetaminophen 325 MG TAB PO PRN (06:40)
[2022-09-09] MEDS: Morphine 2 MG/ML VIAL SLOW IVP PRN ×2 (06:40→23:15)
[2022-09-09 07:50] LABS: #Eosinphils 0.2 thou/uL (0.0-0.7); #Lymphocytes 1.8 thou/uL (1.20-3.40); #Monocytes 0.4 thou/uL (0.11-0.59); #Neutrophils 6.3 thou/uL (1.40-6.50); %Basophils 0.5 % (0.0-1.0); %Eosinophils 2.8 % (0.0-10.0); %Lymphocytes 20.1 % (21.0-51.0); %Monocytes 4.9 % (0.0-10.0); %Neutrophils 71.6 % (42.0-75.0); Hemoglobin 10.7 g/dL (12.0-16.0); Mean Corpuscular HGB CONC 31.9 g/dL (32.0-36.0); Mean Corpuscular Hemoglobin 28.7 pg (27.0-31.0); Mean Platelet Volume 7.8 fL (7.4-10.4); Platelet Count 207 10x3/uL (130-400); RBC Distribution Width 16.1 % (11.5-14.5); Red Blood Cell (RBC) Count 3.74 mill/uL (4.20-5.40); White Blood Cell (WBC) Count 8.7 10x3/uL (4.8-10.8)
[2022-09-09 08:10] LABS: Anion Gap 13 mmol/L (10-20); BUN (Urea Nitrogen) 18 mg/dL (7.0-18.7); Calc. Creatinine Clearance 146 mL/min (70-130); Calcium 8.2 mg/dL (7.8-10.44); Carbon Dioxide 21 mmol/L (22-29); Chloride 113 mmol/L (98-107); Estimated GFR 110; Glucose 128 mg/dL (70-105); Sodium 143 mmol/L (136-145)
[2022-09-09] MEDS ORDERED: Cefepime 1 GM in Sodium Chloride 0.9% 100 ML IVPB SCH (09:00)
[2022-09-09] MEDS ORDERED: LISDEXAMFETAMINE DIMESYLATE 40 MG PO SCH (09:00)
[2022-09-09] MEDS: Famotidine 20 MG TAB PO SCH ×2 (09:05→21:02)
[2022-09-09] MEDS: Gabapentin 300 MG CAP PO SCH ×2 (09:06→21:01)
[2022-09-09] MEDS: Sertraline 100 MG TAB PO SCH (09:06)
[2022-09-09] MEDS: ALPRAZolam 1 MG TAB PO SCH ×3 (09:07→21:02)
[2022-09-09] MEDS: Cefepime 1 GM in Sodium Chloride 0.9% 100 ML IVPB SCH (09:08)
[2022-09-09] MEDS: HYDROcodone/Acetaminophen 10/325 mg Tablet PO PRN ×2 (13:46→21:00)
[2022-09-09] MEDS: Mupirocin 2% Ointment 22 GM Tube TOP SCH (21:02)
[2022-09-09] MEDS: Cefepime 2 GM in Sodium Chloride 0.9% 100 ML IVPB SCH (21:03)
[2022-09-10] MEDS: Acetaminophen 325 MG TAB PO PRN (02:07)
[2022-09-10] MEDS: Ondansetron PF 4 MG/2 ML Vial IVP PRN ×2 (03:26→19:29)
[2022-09-10 05:29] LABS: Vancomycin, Trough 7.2 ug/mL
[2022-09-10] MEDS: Morphine 2 MG/ML VIAL SLOW IVP PRN ×3 (05:37→20:15)
[2022-09-10] MEDS: Sodium Chloride 0.9% 1,000 ML IV SCH ×3 (05:40→17:44)
[2022-09-10] MEDS: VANCOMYCIN 1.25 GM/250 ML BAG 1.25 GM in Premix Bag 1 BAG IVPB SCH ×3 (06:43→23:15)
[2022-09-10] MEDS: Gabapentin 300 MG CAP PO SCH ×2 (08:35→20:17)
[2022-09-10] MEDS: Famotidine 20 MG TAB PO SCH ×2 (08:35→20:17)
[2022-09-10] MEDS: HYDROcodone/Acetaminophen 10/325 mg Tablet PO PRN ×2 (08:36→18:00)
[2022-09-10] MEDS: ALPRAZolam 1 MG TAB PO SCH ×3 (08:38→20:17)
[2022-09-10] MEDS: Sertraline 100 MG TAB PO SCH (08:38)
[2022-09-10] MEDS: Cefepime 2 GM in Sodium Chloride 0.9% 100 ML IVPB SCH ×2 (08:39→20:15)
[2022-09-10] MEDS: Mupirocin 2% Ointment 22 GM Tube TOP SCH ×2 (08:40→20:18)
[2022-09-10] MEDS ORDERED: Amlodipine 5 MG TAB PO SCH (11:45)
[2022-09-10] MEDS ORDERED: Ibuprofen 600 MG TAB PO PRN (18:40)
[2022-09-11] MEDS: Sodium Chloride 0.9% 1,000 ML IV SCH ×3 (02:25→15:43)
[2022-09-11] MEDS: HYDROcodone/Acetaminophen 10/325 mg Tablet PO PRN ×4 (04:09→19:25)
[2022-09-11 05:30] LABS: Vancomycin, Trough 23.2 ug/mL
[2022-09-11] MEDS: Morphine 2 MG/ML VIAL SLOW IVP PRN ×4 (06:29→21:35)
[2022-09-11] MEDS ORDERED: Vancomycin 1 GM in Premix Bag 1 BAG IVPB SCH (08:00)
[2022-09-11] MEDS: Amlodipine 5 MG TAB PO SCH (09:07)
[2022-09-11] MEDS: Famotidine 20 MG TAB PO SCH ×2 (09:07→20:52)
[2022-09-11] MEDS: ALPRAZolam 1 MG TAB PO SCH ×3 (09:07→20:52)
[2022-09-11] MEDS: Gabapentin 300 MG CAP PO SCH ×2 (09:07→20:52)
[2022-09-11] MEDS: Sertraline 100 MG TAB PO SCH (09:08)
[2022-09-11] MEDS: Mupirocin 2% Ointment 22 GM Tube TOP SCH ×2 (09:09→20:54)
[2022-09-11] MEDS ORDERED: Iopamidol 370 76% 100 ML VIAL ONE (10:10)
[2022-09-11] MEDS: Cefepime 2 GM in Sodium Chloride 0.9% 100 ML IVPB SCH ×2 (11:08→20:51)
[2022-09-11 11:18] LABS: Anion Gap 12 mmol/L (10-20); BUN (Urea Nitrogen) 16 mg/dL (7.0-18.7); Calc. Creatinine Clearance 146 mL/min (70-130); Calcium 8.5 mg/dL (7.8-10.44); Carbon Dioxide 24 mmol/L (22-29); Chloride 107 mmol/L (98-107); Estimated GFR 110; Glucose 146 mg/dL (70-105); Potassium 3.6 mmol/L (3.5-5.1); Sodium 139 mmol/L (136-145)
[2022-09-11 11:35] LABS: #Basophils 0.1 thou/uL (0.0-0.2); #Eosinphils 0.2 thou/uL (0.0-0.7); #Monocytes 0.4 thou/uL (0.11-0.59); #Neutrophils 4.1 thou/uL (1.40-6.50); %Basophils 0.7 % (0.0-1.0); %Eosinophils 2.6 % (0.0-10.0); %Lymphocytes 30.3 % (21.0-51.0); %Monocytes 5.6 % (0.0-10.0); %Neutrophils 60.4 % (42.0-75.0); Hemoglobin 9.9 g/dL (12.0-16.0); Mean Corpuscular HGB CONC 29.6 g/dL (32.0-36.0); Mean Corpuscular Hemoglobin 27.4 pg (27.0-31.0); Mean Corpuscular Volume 92.8 fl (78.0-98.0); Mean Platelet Volume 10.2 fL (7.4-10.4); Platelet Count 195 10x3/uL (130-400); RBC Distribution Width 17.4 % (11.5-14.5); Red Blood Cell (RBC) Count 3.61 mill/uL (4.20-5.40); White Blood Cell (WBC) Count 6.8 10x3/uL (4.8-10.8)
[2022-09-11] MEDS: Melatonin 3 MG TAB PO PRN (21:35)
[2022-09-11] MEDS: Vancomycin 1 GM in Premix Bag 1 BAG IVPB SCH (22:49)
[2022-09-12] MEDS: Sodium Chloride 0.9% 1,000 ML IV SCH ×2 (04:33→09:30)
[2022-09-12] MEDS: Morphine 2 MG/ML VIAL SLOW IVP PRN ×5 (05:10→23:32)
[2022-09-12] MEDS: Vancomycin 1 GM in Premix Bag 1 BAG IVPB SCH ×3 (05:10→21:56)
[2022-09-12] MEDS: Famotidine 20 MG TAB PO SCH ×2 (08:46→19:56)
[2022-09-12] MEDS: Gabapentin 300 MG CAP PO SCH ×2 (08:46→19:57)
[2022-09-12] MEDS: HYDROcodone/Acetaminophen 10/325 mg Tablet PO PRN ×4 (08:47→21:56)
[2022-09-12] MEDS: Cefepime 2 GM in Sodium Chloride 0.9% 100 ML IVPB SCH ×2 (08:47→19:56)
[2022-09-12] MEDS: Sertraline 100 MG TAB PO SCH (08:47)
[2022-09-12] MEDS: Amlodipine 5 MG TAB PO SCH (08:47)
[2022-09-12] MEDS: ALPRAZolam 1 MG TAB PO SCH ×3 (08:47→19:57)
[2022-09-12] MEDS: Mupirocin 2% Ointment 22 GM Tube TOP SCH ×2 (08:50→19:57)
[2022-09-12 12:50] LABS: Vancomycin, Trough 17.5 ug/mL
[2022-09-12] MEDS: Ondansetron PF 4 MG/2 ML Vial IVP PRN (13:55)
[2022-09-12] MEDS ORDERED: methylPREDNISolone Sod Succ/PF 125 MG/2 ML VIAL IVP SCH (18:00)
[2022-09-12] MEDS: Acetaminophen 325 MG TAB PO PRN (20:00)
[2022-09-12] MEDS: Melatonin 3 MG TAB PO PRN (21:57)
[2022-09-13 00:31] LABS: HIV (1/2) Antibody/Antigen Non-Reactive (NonReactive); HIV 1/2 INDEX 0.19 S/CO (<1.00)
[2022-09-13] MEDS: Vancomycin 1 GM in Premix Bag 1 BAG IVPB SCH ×3 (06:15→22:58)
[2022-09-13] MEDS: Morphine 2 MG/ML VIAL SLOW IVP PRN ×4 (06:16→20:46)
[2022-09-13] MEDS: methylPREDNISolone Sod Succ/PF 125 MG/2 ML VIAL IVP SCH ×3 (06:16→20:46)
[2022-09-13] MEDS: HYDROcodone/Acetaminophen 10/325 mg Tablet PO PRN ×3 (09:00→18:41)
[2022-09-13] MEDS: Amlodipine 5 MG TAB PO SCH (09:00)
[2022-09-13] MEDS: Famotidine 20 MG TAB PO SCH ×2 (09:00→20:45)
[2022-09-13] MEDS: ALPRAZolam 1 MG TAB PO SCH ×3 (09:00→20:45)
[2022-09-13] MEDS: Sertraline 100 MG TAB PO SCH (09:00)
[2022-09-13] MEDS: Gabapentin 300 MG CAP PO SCH ×2 (09:01→20:45)
[2022-09-13] MEDS: Mupirocin 2% Ointment 22 GM Tube TOP SCH ×2 (09:01→20:47)
[2022-09-13] MEDS: Cefepime 2 GM in Sodium Chloride 0.9% 100 ML IVPB SCH ×2 (09:02→20:45)
[2022-09-13 11:30] LABS: Syphilis Antibody Nonreactive (Nonreactive); Syphilis Antibody Index 0.07 S/CO (<1.00 Non-Reactive)
[2022-09-13] MEDS: Ondansetron PF 4 MG/2 ML Vial IVP PRN (20:46)
[2022-09-13 21:47] LABS: Vancomycin, Trough 11.2 ug/mL
[2022-09-13] MEDS: Melatonin 3 MG TAB PO PRN (23:02)
[2022-09-14] MEDS: HYDROcodone/Acetaminophen 10/325 mg Tablet PO PRN ×4 (00:02→21:21)
[2022-09-14] MEDS: Morphine 2 MG/ML VIAL SLOW IVP PRN ×5 (01:43→22:31)
[2022-09-14] MEDS: methylPREDNISolone Sod Succ/PF 125 MG/2 ML VIAL IVP SCH ×3 (05:58→21:21)
[2022-09-14] MEDS: Vancomycin 1 GM in Premix Bag 1 BAG IVPB SCH ×3 (05:59→22:30)
[2022-09-14] MEDS: Amlodipine 5 MG TAB PO SCH (08:52)
[2022-09-14] MEDS: Cefepime 2 GM in Sodium Chloride 0.9% 100 ML IVPB SCH ×2 (08:52→21:23)
[2022-09-14] MEDS: Mupirocin 2% Ointment 22 GM Tube TOP SCH (08:53)
[2022-09-14] MEDS: ALPRAZolam 1 MG TAB PO SCH ×3 (08:53→21:22)
[2022-09-14] MEDS: Gabapentin 300 MG CAP PO SCH ×2 (08:53→21:22)
[2022-09-14] MEDS: Famotidine 20 MG TAB PO SCH ×2 (08:53→21:22)
[2022-09-14] MEDS: Sertraline 100 MG TAB PO SCH (08:53)
[2022-09-14 21:53] LABS: Vancomycin, Trough 11.3 ug/mL
[2022-09-15] MEDS: HYDROcodone/Acetaminophen 10/325 mg Tablet PO PRN ×3 (01:18→09:21)
[2022-09-15] MEDS: Melatonin 3 MG TAB PO PRN (01:18)
[2022-09-15] MEDS: Morphine 2 MG/ML VIAL SLOW IVP PRN (03:27)
[2022-09-15] MEDS: Vancomycin 1 GM in Premix Bag 1 BAG IVPB SCH (05:01)
[2022-09-15] MEDS: methylPREDNISolone Sod Succ/PF 125 MG/2 ML VIAL IVP SCH (05:01)
[2022-09-15] MEDS: Ondansetron PF 4 MG/2 ML Vial IVP PRN (05:10)
[2022-09-15] MEDS: Sertraline 100 MG TAB PO SCH (08:21)
[2022-09-15] MEDS: Gabapentin 300 MG CAP PO SCH (08:21)
[2022-09-15] MEDS: Cefepime 2 GM in Sodium Chloride 0.9% 100 ML IVPB SCH (08:21)
[2022-09-15] MEDS: Amlodipine 5 MG TAB PO SCH (08:21)
[2022-09-15] MEDS: Famotidine 20 MG TAB PO SCH (08:21)
[2022-09-15] MEDS: ALPRAZolam 1 MG TAB PO SCH (08:21)
[2022-09-15 11:51] VITALS: BP 164/72; TEMP 98
[2022-09-15 16:53] LABS: ANA Symphony (Qualitative) Negative (Negative); ANA Symphony (Quantitative) 0.3 Ratio (< 0.7 Negative); dsDNA IgG Antibody Less than 0.6 IU/mL (<10 Negative)
== END 2022-09-15 11:54 | disposition home or self-care (01) | DRG 603 ==
LOC: ERS 15:43 → T4-A 18:51 → OBSVTOIN 09-09 11:23
PROVIDERS: ADMIT Internal Medicine; ATTEND Internal Medicine
PROC: 0HBEXZX Excision of Left Lower Arm Skin, External Approach, Diagnostic (ICD-10-PCS; principal; 2022-09-11)
DX: L03.114 Cellulitis of left upper limb (principal); F32.A Depression, unspecified; G40.909 Epilepsy, unspecified, not intractable, without status epilepticus; I10 Essential (primary) hypertension; E66.9 Obesity, unspecified; Z88.6 Allergy status to analgesic agent; Z68.30 Body mass index [BMI] 30.0-30.9, adult; Z88.8 Allergy status to other drugs, medicaments and biological substances; Z79.899 Other long term (current) drug therapy
CPT/HCPCS: 36415; 71045; 80048; 80053; 80202; 81003; 81015; 82565; 83605; 85025; 85652; 86038; 86140; 86225; 86780; 87040; 87086; 87389; 88305; 93005; 96365; 96375; 96376; G0378; J0692; J1650; J2272; J2405; J2543; J2930; J3370; J3370-JW; J3490; J7050; Q9967

== ENCOUNTER 2023-10-25 09:07 | Emergency (ER) | payer SELFPAY ==
[2023-10-25 10:54] LABS: #Basophils 0.08 10x3/uL (0.0-0.2); %Basophils 0.8 % (0.0-1.0); %Eosinophils 1.8 % (0.0-10.0); %Lymphocytes 23.3 % (21.0-51.0); %Monocytes 6.7 % (0.0-10.0); %Neutrophils 66.6 % (42.0-75.0); Hemoglobin 12.9 g/dL (12.0-16.0); Mean Corpuscular HGB CONC 33.1 g/dL (32.0-36.0); Mean Corpuscular Hemoglobin 29.9 pg (27.0-31.0); Mean Corpuscular Volume 90.3 fL (78.0-98.0); Mean Platelet Volume 10.3 fL (7.4-10.4); Platelet Count 238 10x3/uL (130-400); RBC Distribution Width 15.2 % (11.5-14.5); Red Blood Cell (RBC) Count 4.32 mill/uL (4.20-5.40)
[2023-10-25 11:15] LABS: ALT (SGPT) 12 U/L (8-55); AST (SGOT) 12 U/L (5-34); Albumin 3.7 g/dL (3.5-5.0); Alkaline Phosphatase 88 U/L (40-110); Anion Gap 16 mmol/L (10-20); BUN (Urea Nitrogen) 22 mg/dL (7.0-18.7); Bilirubin, Total 0.2 mg/dL (0.2-1.2); Calc. Creatinine Clearance 0 mL/min (70-130); Calcium 9.4 mg/dL (7.8-10.44); Carbon Dioxide 21 mmol/L (22-29); Chloride 107 mmol/L (98-107); Estimated GFR 115; Globulin 3.2 g/dL (2.4-3.5); Glucose 99 mg/dL (70-105); Protein, Total 6.9 g/dL (6.0-8.3); Sodium 140 mmol/L (136-145)
== END 2023-10-25 11:38 | disposition home or self-care (01) ==
LOC: ERS 09:07
DX: S09.90XA Unspecified injury of head, initial encounter (principal); G40.409 Other generalized epilepsy and epileptic syndromes, not intractable, without status epilepticus; J45.909 Unspecified asthma, uncomplicated; D50.9 Iron deficiency anemia, unspecified; F17.210 Nicotine dependence, cigarettes, uncomplicated; W18.00XA Striking against unspecified object with subsequent fall, initial encounter
CPT/HCPCS: 36415; 70450; 80053; 85025; 93005

== ENCOUNTER 2023-10-27 06:53 | Day surgery (SDC) | payer OTHER, SELFPAY ==
[2023-10-27] MEDS ORDERED: Sodium Bicarbonate 2.5 MEQ/5 ML SDV ONE ×2 (07:06→09:21)
[2023-10-27] MEDS ORDERED: ALPRAZolam 1 MG TAB PO SCH (08:00)
[2023-10-27] MEDS ORDERED: Lidocaine 2% 6 ML (Jelly) SYR ONE (09:19)
[2023-10-27] MEDS ORDERED: Lidocaine 1% PF 5 ML VIAL ONE (09:19)
[2023-10-27 11:36] LABS: CSF Source CSF
[2023-10-27 11:37] LABS: Clarity Clear (Clear); Tube # 4
[2023-10-27 12:02] LABS: CSF, Protein 31.4 mg/dL (15-40)
== END 2023-10-27 11:15 | disposition home or self-care (01) ==
LOC: RAD 06:53
PROVIDERS: ATTEND Surgery
PROC: 00JU3ZZ Inspection of Spinal Canal, Percutaneous Approach (ICD-10-PCS; principal; 2023-10-27)
DX: R56.9 Unspecified convulsions (principal); R41.0 Disorientation, unspecified; R51.9 Headache, unspecified; R20.0 Anesthesia of skin; R26.89 Other abnormalities of gait and mobility; R29.6 Repeated falls; Z91.041 Radiographic dye allergy status; Z87.891 Personal history of nicotine dependence
CPT/HCPCS: 62270; 82945; 84157; 87070; 87205; 89051

== ENCOUNTER 2023-11-02 07:04 | Emergency (ER) | payer SELFPAY ==
[2023-11-02 07:35] LABS: #Basophils 0.05 10x3/uL (0.0-0.2); %Basophils 0.5 % (0.0-1.0); %Eosinophils 2.5 % (0.0-10.0); %Lymphocytes 21.1 % (21.0-51.0); %Monocytes 6.8 % (0.0-10.0); %Neutrophils 68.4 % (42.0-75.0); Hematocrit 37.4 % (36.0-47.0); Hemoglobin 12.1 g/dL (12.0-16.0); Mean Corpuscular HGB CONC 32.4 g/dL (32.0-36.0); Mean Corpuscular Volume 92.6 fL (78.0-98.0); Mean Platelet Volume 9.5 fL (7.4-10.4); Platelet Count 259 10x3/uL (130-400); RBC Distribution Width 15.4 % (11.5-14.5); Red Blood Cell (RBC) Count 4.04 mill/uL (4.20-5.40)
[2023-11-02 07:54] LABS: BHCG - Serum Negative (NEGATIVE); Pregs Control Background? CLEAR/WHITE (CLR/WHITE); Pregs Control Bar Appear? YES (CONTROL BAR)
[2023-11-02 08:04] LABS: ALT (SGPT) 11 U/L (8-55); AST (SGOT) 14 U/L (5-34); Albumin 3.9 g/dL (3.5-5.0); Alkaline Phosphatase 97 U/L (40-110); Anion Gap 13 mmol/L (10-20); BUN (Urea Nitrogen) 27 mg/dL (7.0-18.7); Bilirubin, Total 0.2 mg/dL (0.2-1.2); Calc. Creatinine Clearance 0 mL/min (70-130); Calcium 9.6 mg/dL (7.8-10.44); Carbon Dioxide 24 mmol/L (22-29); Chloride 109 mmol/L (98-107); Estimated GFR 109; Globulin 3.2 g/dL (2.4-3.5); Glucose 117 mg/dL (70-105); Potassium 3.3 mmol/L (3.5-5.1); Protein, Total 7.1 g/dL (6.0-8.3); Sodium 143 mmol/L (136-145)
[2023-11-02] MEDS ORDERED: Acetaminophen 500 MG TAB ONE (08:22)
[2023-11-02] MEDS ORDERED: Ibuprofen 200 MG TAB ONE (08:22)
[2023-11-02 08:54] LABS: Bilirubin Negative (Negative); Blood, Urine 3+ (Negative); CAUTI Indications for Culture Alt mental st,lethar; Clarity Clear (Clear); Glucose, Urine (Dipstick) Normal (Negative); Ketone, Urine Negative (Negative); Leukocyte Negative Leu/uL (Negative); Nitrite Negative (Negative); Protein, Urine (Dipstick) 10 mg/dL (Neg-Trace); Specific Gravity, Urine 1.025 (1.002-1.036); Urobilinogen Normal mg/dL (Less than 2); pH, Urine 5.5 (5.0-9.0)
[2023-11-02 08:56] LABS: Amphetamine Not Detected (NotDetected); Bacteria/HPF 1+ HPF (None Seen); Barbiturates Screen Not Detected (NotDetected); Benzodiazepine Screen Detected (NotDetected); Cocaine Metabolite Screen Not Detected (NotDetected); Methadone Not Detected (NotDetected); Methamphetamine Not Detected (NotDetected); Opiate Screen Detected (NotDetected); Oxycodone Screen Not Detected (NotDetected); Phencyclidine (PCP) Not Detected (NotDetected); THC/Cannabinoid Screen Not Detected (NotDetected); Tricyclic Screen Not Detected (NotDetected)
[2023-11-02 08:57] LABS: Urine Culture Reflex No No
[2023-11-02] MEDS ORDERED: levETIRAcetam 500 MG (5 mL) VIAL ONE (09:01)
[2023-11-02] MEDS ORDERED: Lorazepam 2 MG/ML VIAL ONE (09:01)
== END 2023-11-02 10:06 | disposition home or self-care (01) ==
LOC: ERS 07:04
DX: S09.90XA Unspecified injury of head, initial encounter (principal); G40.909 Epilepsy, unspecified, not intractable, without status epilepticus; F17.210 Nicotine dependence, cigarettes, uncomplicated; X58.XXXA Exposure to other specified factors, initial encounter; Z79.899 Other long term (current) drug therapy
CPT/HCPCS: 70450; 80053; 80177; 80306; 81001; 84703; 85025; 93005; 96365; 96375; J1953; J2060

== ENCOUNTER 2024-01-27 13:51 | Emergency (ER) | payer SELFPAY ==
[2024-01-27] MEDS ORDERED: Lorazepam 2 MG/ML VIAL ONE (14:11)
[2024-01-27 15:44] LABS: #Basophils 0.04 10x3/uL (0.0-0.2); %Basophils 0.5 % (0.0-1.0); %Eosinophils 1.8 % (0.0-10.0); %Lymphocytes 26.4 % (21.0-51.0); %Monocytes 5.4 % (0.0-10.0); %Neutrophils 64.6 % (42.0-75.0); Hematocrit 37.5 % (36.0-47.0); Hemoglobin 12.1 g/dL (12.0-16.0); Mean Corpuscular HGB CONC 32.3 g/dL (32.0-36.0); Mean Corpuscular Hemoglobin 30.1 pg (27.0-31.0); Mean Corpuscular Volume 93.3 fL (78.0-98.0); Mean Platelet Volume 9.6 fL (7.4-10.4); Platelet Count 237 10x3/uL (130-400); Red Blood Cell (RBC) Count 4.02 mill/uL (4.20-5.40)
[2024-01-27 16:00] LABS: BHCG - Serum Negative (NEGATIVE); Pregs Control Background? CLEAR/WHITE (CLR/WHITE); Pregs Control Bar Appear? YES (CONTROL BAR)
[2024-01-27 16:12] LABS: ALT (SGPT) 13 U/L (8-55); AST (SGOT) 13 U/L (5-34); Albumin 3.2 g/dL (3.5-5.0); Alkaline Phosphatase 76 U/L (40-110); Anion Gap 11 mmol/L (10-20); BUN (Urea Nitrogen) 15 mg/dL (7.0-18.7); Bilirubin, Total 0.1 mg/dL (0.2-1.2); Calc. Creatinine Clearance 0 mL/min (70-130); Calcium 8.7 mg/dL (7.8-10.44); Carbon Dioxide 27 mmol/L (22-29); Chloride 106 mmol/L (98-107); Estimated GFR 114; Globulin 2.7 g/dL (2.4-3.5); Glucose 99 mg/dL (70-105); Potassium 3.6 mmol/L (3.5-5.1); Protein, Total 5.9 g/dL (6.0-8.3); Sodium 140 mmol/L (136-145)
== END 2024-01-27 16:22 | disposition home or self-care (01) ==
LOC: ERS 13:51
DX: R56.9 Unspecified convulsions (principal); F17.210 Nicotine dependence, cigarettes, uncomplicated
CPT/HCPCS: 36415; 70450; 80053; 84703; 85025; 93005; J2060

== ENCOUNTER 2024-12-17 20:50 | Emergency (ER) | payer BC ==
[2024-12-17] MEDS ORDERED: levETIRAcetam 500 MG TAB ONE (21:32)
== END 2024-12-17 21:42 | disposition home or self-care (01) ==
LOC: ERS 20:50
DX: F10.129 Alcohol abuse with intoxication, unspecified (principal); F17.210 Nicotine dependence, cigarettes, uncomplicated
CPT/HCPCS: 99284

== ENCOUNTER 2025-02-14 09:08 | Inpatient (IN) | payer BC ==
[2025-02-14 10:12] LABS: #Basophils 0.05 10x3/uL (0.0-0.2); #Eosinophils 0.26 10x3/uL (0.0-0.7); #Monocytes 0.46 10x3/uL (0.11-0.59); #Neutrophils 4.41 10x3/uL (1.40-6.50); %Basophils 0.7 % (0.0-1.0); %Eosinophils 3.5 % (0.0-10.0); %Lymphocytes 30.0 % (21.0-51.0); %Monocytes 6.2 % (0.0-10.0); %Neutrophils 59.3 % (42.0-75.0); Hematocrit 41.3 % (36.0-47.0); Hemoglobin 13.0 g/dL (12.0-16.0); Mean Corpuscular Hemoglobin 29.0 pg (27.0-31.0); Mean Corpuscular Volume 92.0 fL (78.0-98.0); Platelet Count 219 10x3/uL (130-400); Red Blood Cell (RBC) Count 4.49 mill/uL (4.20-5.40); White Blood Cell (WBC) Count 7.43 10x3/uL (4.8-10.8)
[2025-02-14 10:28] LABS: BHCG - Serum Negative (NEGATIVE); Pregs Control Background? CLEAR/WHITE (CLR/WHITE); Pregs Control Bar Appear? YES (CONTROL BAR)
[2025-02-14 10:32] LABS: ALT (SGPT) 9 U/L (Less than 34); AST (SGOT) 25 U/L (11-34); Albumin 4.0 g/dL (3.1-4.5); Alkaline Phosphatase 88 U/L (40-110); Anion Gap 15 mmol/L (10-20); BUN (Urea Nitrogen) 18 mg/dL (7.0-18.7); Bilirubin, Total 0.2 mg/dL (0.3-1.2); Calc. Creatinine Clearance 0 mL/min (70-130); Calcium 9.5 mg/dL (7.8-10.44); Carbon Dioxide 27 mmol/L (22-29); Chloride 105 mmol/L (98-107); Globulin 3.0 g/dL (2.4-3.5); Glucose 85 mg/dL (70-105); Potassium 4.2 mmol/L (3.5-5.1); Sodium 143 mmol/L (136-145)
[2025-02-14] MEDS ORDERED: levETIRAcetam 500 MG (5 mL) VIAL ONE (11:37)
[2025-02-14] MEDS ORDERED: Guaifenesin DM 100-10/5 ML UDCUP PO PRN (13:52)
[2025-02-14] MEDS ORDERED: Calcium Carbonate 500 MG ChewTAB PO PRN (13:52)
[2025-02-14] MEDS ORDERED: Albuterol 200 PUFF (6.7GM INHALER) INH PRN (13:56)
[2025-02-14] MEDS: Gabapentin 300 MG CAP PO SCH (19:05)
[2025-02-14] MEDS: Acetaminophen 325 MG TAB PO PRN (19:05)
[2025-02-14 19:50] LABS: Cocaine Metabolite Screen Negative (Negative); THC/Cannabinoid Screen Negative (Negative); Tricyclic Screen Negative (Negative)
[2025-02-14] MEDS: Famotidine 20 MG TAB PO SCH (20:20)
[2025-02-14] MEDS: levETIRAcetam 500 MG (5 mL) VIAL SLOW IVP SCH (20:20)
[2025-02-15 04:03] LABS: #Basophils 0.07 10x3/uL (0.0-0.2); #Eosinophils 0.24 10x3/uL (0.0-0.7); #Monocytes 0.46 10x3/uL (0.11-0.59); #Neutrophils 4.25 10x3/uL (1.40-6.50); %Basophils 1.0 % (0.0-1.0); %Eosinophils 3.3 % (0.0-10.0); %Lymphocytes 31.2 % (21.0-51.0); %Monocytes 6.3 % (0.0-10.0); %Neutrophils 57.8 % (42.0-75.0); Hematocrit 37.9 % (36.0-47.0); Hemoglobin 11.7 g/dL (12.0-16.0); Mean Corpuscular Hemoglobin 29.2 pg (27.0-31.0); Mean Corpuscular Volume 94.5 fL (78.0-98.0); Platelet Count 194 10x3/uL (130-400); Red Blood Cell (RBC) Count 4.01 mill/uL (4.20-5.40); White Blood Cell (WBC) Count 7.34 10x3/uL (4.8-10.8)
[2025-02-15 04:15] LABS: Anion Gap 14 mmol/L (10-20); BUN (Urea Nitrogen) 22 mg/dL (7.0-18.7); Calc. Creatinine Clearance 0 mL/min (70-130); Calcium 8.7 mg/dL (7.8-10.44); Carbon Dioxide 24 mmol/L (22-29); Chloride 107 mmol/L (98-107); Glucose 140 mg/dL (70-105); Potassium 3.8 mmol/L (3.5-5.1); Sodium 141 mmol/L (136-145)
[2025-02-15] MEDS: Enoxaparin 40 MG (0.4 mL) SYRINGE SC SCH (08:32)
[2025-02-15] MEDS ORDERED: LISDEXAMFETAMINE DIMESYLATE PO SCH (09:00)
[2025-02-16] MEDS: levETIRAcetam 500 MG TAB PO SCH ×3 (02:52→20:37)
[2025-02-16 04:12] LABS: #Basophils Less than 0.03 10x3/uL (0.0-0.2); #Eosinophils 0.27 10x3/uL (0.0-0.7); #Monocytes 0.60 10x3/uL (0.11-0.59); #Neutrophils 6.25 10x3/uL (1.40-6.50); %Basophils 0.2 % (0.0-1.0); %Eosinophils 3.0 % (0.0-10.0); %Lymphocytes 20.4 % (21.0-51.0); %Monocytes 6.7 % (0.0-10.0); %Neutrophils 69.5 % (42.0-75.0); Hematocrit 39.5 % (36.0-47.0); Hemoglobin 12.1 g/dL (12.0-16.0); Mean Corpuscular Hemoglobin 28.6 pg (27.0-31.0); Mean Corpuscular Volume 93.4 fL (78.0-98.0); Platelet Count 218 10x3/uL (130-400); Red Blood Cell (RBC) Count 4.23 mill/uL (4.20-5.40); White Blood Cell (WBC) Count 9.00 10x3/uL (4.8-10.8)
[2025-02-16 04:24] LABS: Anion Gap 9 mmol/L (10-20); BUN (Urea Nitrogen) 26 mg/dL (7.0-18.7); Calc. Creatinine Clearance 0 mL/min (70-130); Calcium 9.2 mg/dL (7.8-10.44); Carbon Dioxide 29 mmol/L (22-29); Chloride 104 mmol/L (98-107); Glucose 107 mg/dL (70-105); Potassium 3.9 mmol/L (3.5-5.1); Sodium 138 mmol/L (136-145)
[2025-02-16] MEDS: Lisinopril 10 MG TAB PO SCH (08:32)
[2025-02-16] MEDS: Ondansetron PF 4 MG/2 ML Vial IVP PRN (19:27)
[2025-02-17 12:04] VITALS: BP 116/70; TEMP 98.5
[2025-02-17] MEDS: levETIRAcetam 500 MG TAB PO SCH (13:13)
== END 2025-02-17 15:30 | disposition home or self-care (01) | DRG 880 ==
LOC: ERS 09:08 → 2SE 12:41
PROVIDERS: ADMIT Family Medicine; ATTEND Student in an Organized Health Care Education/Training Program
PROC: XX20X89 Monitoring of Brain Electrical Activity, Computer-aided Detection and Notification, New Technology Group 9 (ICD-10-PCS; principal; 2025-02-14)
DX: F44.5 Conversion disorder with seizures or convulsions (principal); F32.A Depression, unspecified; Z79.899 Other long term (current) drug therapy; S50.12XA Contusion of left forearm, initial encounter; D50.9 Iron deficiency anemia, unspecified; G43.909 Migraine, unspecified, not intractable, without status migrainosus; F17.210 Nicotine dependence, cigarettes, uncomplicated; F90.9 Attention-deficit hyperactivity disorder, unspecified type; J45.20 Mild intermittent asthma, uncomplicated; F41.9 Anxiety disorder, unspecified; Z86.14 Personal history of Methicillin resistant Staphylococcus aureus infection; M79.81 Nontraumatic hematoma of soft tissue; I10 Essential (primary) hypertension; Z90.49 Acquired absence of other specified parts of digestive tract; Z88.6 Allergy status to analgesic agent; Z88.5 Allergy status to narcotic agent; Z88.8 Allergy status to other drugs, medicaments and biological substances; Z98.890 Other specified postprocedural states
CPT/HCPCS: 36415; 36416; 70450; 71045; 80048; 80053; 80306; 84146; 84439; 84443; 84703; 85025; 93005; 94760; 95816; 95819; 96374; J1650; J1953; J2060; J7042